=== PATIENT | female | born 1965 | race Caucasian/White ===

== ENCOUNTER 2017-10-31 03:40 | Emergency (ER) | payer OTHER ==
[2017-10-31] MEDS ORDERED: Ondansetron ODT 4 MG TAB ONE (03:55)
[2017-10-31 04:35] LABS: #Eosinphils 0.5 thou/uL (0.0-0.7); #Lymphocytes 2.4 thou/uL (1.20-3.40); #Monocytes 0.9 thou/uL (0.11-0.59); #Neutrophils 6.2 thou/uL (1.40-6.50); %Basophils 0.2 % (0.0-1.0); %Monocytes 8.7 % (0.0-10.0); %Neutrophils 62.1 % (42.0-75.0); Hemoglobin 11.9 g/dL (12.0-16.0); Mean Corpuscular HGB CONC 33.7 g/dL (32.0-36.0); Mean Corpuscular Hemoglobin 28.2 pg (27.0-31.0); Mean Corpuscular Volume 83.6 fl (81.0-99.0); Mean Platelet Volume 6.6 fL (7.4-10.4); Platelet Count 286 thou/uL (130-400); RBC Distribution Width 14.2 % (11.5-14.5); Red Blood Cell (RBC) Count 4.23 mill/uL (4.20-5.40); White Blood Cell (WBC) Count 10.1 thou/uL (4.8-10.8)
[2017-10-31 04:37] LABS: Bilirubin Negative (Negative); Blood, Urine Moderate (Negative); Clarity CLOUDY (Clear); Glucose, Urine (Dipstick) Negative (Negative); Leukocyte Negative (Negative); Nitrite Negative (Negative); Protein, Urine (Dipstick) 30 mg/dL (Neg-Trace); Specific Gravity, Urine 1.021 (1.002-1.036); Urobilinogen 0.2 mg/dL (0.2-1.0); pH, Urine 5.5 (5.0-9.0)
[2017-10-31 04:39] LABS: Bacteria/HPF Rare-Few HPF (None Seen); Hyaline Casts/LPF 4-6 HYALINE CAST LPF (0-3 Hyaline); RBC/HPF 21-50 HPF (0-3); Squamous Epithelial 21-50 HPF (0-3)
[2017-10-31 04:57] LABS: ALT (SGPT) 45 U/L (8-55); AST (SGOT) 33 U/L (5-34); Albumin 3.7 g/dL (3.5-5.0); Alkaline Phosphatase 89 U/L (40-150); Anion Gap 15 mmol/L (10-20); BUN (Urea Nitrogen) 26 mg/dL (9.8-20.1); Bilirubin, Total 0.3 mg/dL (0.2-1.2); Calc. Creatinine Clearance 0 mL/min (70-130); Calcium 9.4 mg/dL (7.8-10.44); Carbon Dioxide 24 mmol/L (22-29); Chloride 105 mmol/L (98-107); Estimated GFR-MDRD 35; Globulin 3.3 g/dL (2.4-3.5); Glucose 133 mg/dL (70-105); Sodium 140 mmol/L (136-145)
[2017-10-31] MEDS ORDERED: HYDROcodone/Acetaminophen 10/325 mg Tablet ONE (05:54)
[2017-10-31] MEDS ORDERED: Ketorolac Tromethamine 60 MG/2 ML VIAL ONE (06:06)
--- NOTE | 2017-10-31 08:58 | CT ---
PRELIMINARY REPORT/[facility]/EMERGENTY AFTER-HOURS PROCEDURE CT Abdomen and Pelvis Without Intravenous Contrast CLINICAL HISTORY: 52 years old, female; Pain; Abdominal pain; Flank; Left; Patient HX: F52 presents to ed C/O l flank p ain that began acutely this am while pt was asleep. Palpation does not exacerbate pain, pt denies cou gh, vomiting, abd pain. Pt reports nausea. Pt denies HX of kidney stones. Pt underwent chemo 2 weeks ago and went to [facility] where pt was told that l kidney only had 40-50% function left. Pt reports normal urination (no dysuria, no frequency, no hematuria). 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 Pt is no longer taking tx for cervical ca TECHNIQUE: Axial computed tomography images of the abdomen and pelvis without intravenous contrast. Coronal refo rmatted images were created and reviewed. COMPARISON: No relevant prior studies available. FINDINGS: Lung bases: Unremarkable. No mass. No consolidation. ABDOMEN: Liver: Hepatic steatosis. Gallbladder and bile ducts: Status post cholecystectomy. Pancreas: No ductal dilation. Spleen: Unremarkable. Adrenals: Unremarkable. Kidneys and ureters: Asymmetric enlargement of the left kidney with perinephric stranding and a 5 mm obstructing stone in the left ureteropelvic junction with mild hydronephrosis. A 2 mm nonobstructing stone in the left kidney. A 4 mm nonobstructing stone in the left kidney. Stomach and bowel: Diverticulosis of the colon without inflammatory changes. Appendix: No findings to suggest acute appendicitis. PELVIS: Bladder: Unremarkable. Reproductive: Status post hysterectomy. ABDOMEN and PELVIS: Intraperitoneal space: No free air. No significant fluid collection. Bones/joints: Multilevel degenerative changes of the spine. No acute fracture. No dislocation. Soft tissues: Unremarkable. Vasculature: Unremarkable. No abdominal aortic aneurysm. Lymph nodes: Large periportal lymph nodes. IMPRESSION: 1. Asymmetric enlargement of the left kidney with perinephric stranding and mild hydronephrosis due t o a 5 mm obstructing stone in the left ureteropelvic junction. 2. A 4 mm left and 2 mm right nonobstructing stones in both kidneys. 3. Large periportal lymph nodes. Consider rheumatologic consult. Thank you for allowing us to participate in the care of your patient. Dictated and Authenticated by: Hua Aldridge MD 10/31/2017 5:35 AM Central Time ([place] & [place]) FINAL REPORT CT ABDOMEN: HISTORY: Abdominal pain. Left-sided flank pain. FINDINGS: Final report. Preliminary exam was performed by [facility]. Noncontrast-enhanced CT images of the abdomen and pelvis were obtained. There is an approximately 5 mm proximal left ureteral calculus resulting in a moderate degree of left-sided hydroureteral nephros is. Some perinephric fat stranding is present. No evidence of free intraperitoneal air or fluid is seen. Enlarged periportal lymph nodes seen. IMPRESSION: Obstructing proximal left ureteral calculus. I concur with the dictation from [facility]. POS: [facility]
== END 2017-10-31 06:13 | disposition home or self-care (01) ==
LOC: ERS 03:40
DX: N13.2 Hydronephrosis with renal and ureteral calculous obstruction (principal); E66.9 Obesity, unspecified; I10 Essential (primary) hypertension
CPT/HCPCS: 36415; 74176; 80053; 81003; 81015; 85025; 87086; 96372; J1885; Q0162

== ENCOUNTER 2017-11-04 15:50 | Inpatient (IN) | payer OTHER ==
[~2017-11-04 15:50] MED LIST: Dexamethasone 20 MG/5 ML VIAL ONE; Lidocaine 1% PF 5 ML VIAL ONE; Ondansetron HCl/PF 4 MG/2 ML Vial ONE; PROPOFOL 200 MG/20 ML VIAL ONE; Succinylcholine Chloride 20 MG/ML 10 ml SYRINGE FS ONE; ePHEDrine/0.9% NaCl/PF SYRINGE 50 mg/10 ml ONE
[2017-11-04 19:10] LABS: #Eosinphils 0.3 thou/uL (0.0-0.7); #Lymphocytes 1.7 thou/uL (1.20-3.40); #Monocytes 1.1 thou/uL (0.11-0.59); #Neutrophils 7.6 thou/uL (1.40-6.50); %Basophils 0.3 % (0.0-1.0); %Eosinophils 2.5 % (0.0-10.0); %Lymphocytes 16.2 % (21.0-51.0); %Monocytes 10.3 % (0.0-10.0); %Neutrophils 70.8 % (42.0-75.0); Hemoglobin 11.4 g/dL (12.0-16.0); Mean Corpuscular HGB CONC 32.8 g/dL (32.0-36.0); Mean Corpuscular Hemoglobin 28.2 pg (27.0-31.0); Mean Corpuscular Volume 85.9 fl (81.0-99.0); Mean Platelet Volume 6.5 fL (7.4-10.4); Platelet Count 298 thou/uL (130-400); RBC Distribution Width 14.1 % (11.5-14.5); Red Blood Cell (RBC) Count 4.03 mill/uL (4.20-5.40); White Blood Cell (WBC) Count 10.8 thou/uL (4.8-10.8)
[2017-11-04 19:34] LABS: ALT (SGPT) 92 U/L (8-55); AST (SGOT) 46 U/L (5-34); Albumin 3.6 g/dL (3.5-5.0); Alkaline Phosphatase 161 U/L (40-150); Anion Gap 12 mmol/L (10-20); BUN (Urea Nitrogen) 39 mg/dL (9.8-20.1); Bilirubin, Total 0.5 mg/dL (0.2-1.2); Calc. Creatinine Clearance 0 mL/min (70-130); Calcium 9.9 mg/dL (7.8-10.44); Carbon Dioxide 28 mmol/L (22-29); Chloride 103 mmol/L (98-107); Estimated GFR-MDRD 20; Globulin 3.9 g/dL (2.4-3.5); Glucose 108 mg/dL (70-105); Potassium 4.6 mmol/L (3.5-5.1); Protein, Total 7.5 g/dL (6.0-8.3); Sodium 138 mmol/L (136-145)
[2017-11-04 19:52] LABS: Bilirubin Negative (Negative); Blood, Urine Negative (Negative); Clarity CLOUDY (Clear); Glucose, Urine (Dipstick) Negative (Negative); Leukocyte Negative (Negative); Nitrite Negative (Negative); Protein, Urine (Dipstick) 30 mg/dL (Neg-Trace); Specific Gravity, Urine 1.021 (1.002-1.036); pH, Urine 5.5 (5.0-9.0)
[2017-11-04 19:55] LABS: Bacteria/HPF None Seen HPF (None Seen); Hyaline Casts/LPF 0-3 HYALINE CAST LPF (0-3 Hyaline); Pathc Cast-AUWi Flag 0.87 (0-2.49)
[2017-11-04 20:00] LABS: Yeast-AUWi Flag 25.4 (0-25.0)
[2017-11-04 20:19] LABS: Crystals/HPF 1+ URIC ACID HPF (Negative); Yeast-All Forms None Seen HPF (None Seen)
[2017-11-04] MEDS ORDERED: Bisacodyl 5 MG TAB PO PRN (20:35)
[2017-11-04] MEDS ORDERED: Acetaminophen 650 MG Suppository PR PRN (20:35)
[2017-11-04] MEDS ORDERED: Ondansetron HCl/PF 4 MG/2 ML Vial IVP PRN ×2 (20:35→23:05)
[2017-11-04] MEDS ORDERED: Acetaminophen 325 MG TAB PO PRN (20:35)
[2017-11-04] MEDS ORDERED: HYDROcodone/Acetaminophen 5/325 mg Tablet PO PRN (20:35)
[2017-11-04] MEDS ORDERED: Dextrose 5% in Water 1,000 ML IV PRN (20:49)
[2017-11-04] MEDS ORDERED: Dextrose 50% Abboject 50 ML SYRINGE SLOW IVP PRN (20:49)
--- NOTE | 2017-11-04 21:03 | ULT ---
RENAL ULTRASOUND: 11/04/17 INDICATION: Abdominal pain. History of renal stones. COMPARISON: Prior CT dated 10/31/17. FINDINGS: Right kidney measures 9.0 x 5.1 x 5.2 cm. Left kidney measures 11.8 x 6.3 x 5.8 cm. Small echogenic f ocus is seen within the inferior pole of left kidney likely corresponding to small nonobstructing beth al calculi. Mild left hydronephrosis is present. No right sided hydronephrosis is evident. The prevoi d bladder volume was 5.6 mL. IMPRESSION: 1. Left nephrolithiasis. 2. Stable mild left sided hydronephrosis demonstrated. POS: [facility]
[2017-11-04] MEDS ORDERED: Iothalamate Meglumine 60% 50 ML VIAL FS ONE (21:31)
[2017-11-04] MEDS ORDERED: HYDROmorphone 0.5 MG/0.5 ML SYRINGE ONE (21:31)
[2017-11-04] MEDS ORDERED: Fentanyl 100 MCG/2 ML VIAL ONE (21:31)
--- NOTE | 2017-11-04 21:45 | HP ---
PRIMARY CARE PHYSICIAN: Dr. Claudio Hernandez. CHIEF COMPLAINT: Left flank pain. HISTORY OF PRESENT ILLNESS: Ms. Peraza is a pleasant 52-year-old lady who was seen at [facility] on 11/04/2017. She reports that she developed left-sided flank pain, 4 days ago . She reports that it is sharp, 10/10 at its worst, constant, no known aggravating or relieving fact ors. She came to the emergency room and was diagnosed with left-sided nephrolithiasis. She was disc harged home. Yesterday, she had a temperature of 100.4 degrees Fahrenheit. She saw her primary care physician earlier today. Urine test was suggestive of an infection. She was therefore sent to the emergency room after I discussed with the urologist on-call. She also reports nausea. She denies any chest pain or shortness of breath. She denies any vomiting. REVIEW OF SYSTEMS: The following complete review of systems was negative, unless otherwise mentioned in the HPI or below: Constitutional: Weight loss or gain, ability to conduct usual activities. Sk in: Rash, itching. Eyes: Double vision, pain. ENT/Mouth: Nose bleeding, neck stiffness, pain, te nderness. Cardiovascular: Palpitations, dyspnea on exertion, orthopnea. Respiratory: Shortness of breath, wheezing, cough, hemoptysis, fever, or night sweats. Gastrointestinal: Poor appetite, abdo marcial pain, heartburn, nausea, vomiting, constipation, or diarrhea. Genitourinary: Urgency, frequen cy, dysuria, nocturia. Musculoskeletal: Pain, swelling. Neurologic/Psychiatric: Anxiety, depressi on. Allergy/Immunologic: Skin rash, bleeding tendency. 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 SOCIAL HISTORY: Patient denies tobacco use, alcohol use, or recreational drug use. FAMILY HISTORY: Sister with nephrolithiasis. ALLERGIES: ASPIRIN AND PREDNISONE. CURRENT MEDICATIONS: [place] 10/325 mg every 4 hours as needed and metformin 500 mg 2 times a day. PHYSICAL EXAMINATION: GENERAL: Ms. Peraza is awake and alert, not in acute distress. VITAL SIGNS: Blood pressure is 163/70, pulse is 97. She is breathing at rate of 20 and saturating 9 4% on room air. She is afebrile. She is obese. EYES: No scleral icterus, no conjunctival pallor. ENT: Dry mucosal membranes, no oropharyngeal erythema or exudates. NECK: Supple, nontender, normal range of movement, trachea is midline. RESPIRATORY: Accessory muscles of breathing are not active. Chest wall movements are symmetric bila terally. LUNGS: Clear to auscultation without wheeze, rhonchi, or crepitations. CARDIOVASCULAR: S1 and S2 are heard, regular. Peripheral pulses palpable, no carotid bruit, no krys cardial rub. ABDOMEN: Soft, distended, nontender, bowel sounds heard, no hepatomegaly, no splenomegaly, no flank tenderness. NEUROLOGIC: Cranial nerves II-XII intact. Deep tendon reflexes 2+. MUSCULOSKELETAL: Power is 5/5 in all 4 extremities. Normal range of movement at all major extremity joints. SKIN: No rashes or subcutaneous nodules. LYMPHATIC: No cervical lymphadenopathy. PSYCHIATRIC: Normal mood, normal affect, patient is oriented to person, place, and time. LABORATORY DATA: Ms. Peraza's labs and investigations were reviewed. She had a renal ultrasound, w [facility] showed left-sided nephrolithiasis, but no hydronephrosis. She has a normal white count, normocy tic anemia with hemoglobin 11.4, normal platelet count, normal electrolytes, elevated blood-urea nitr ogen of 39, elevated creatinine of 2.48, last known creatinine 1.55 on 10/31/2017, elevated AST of 46 , elevated ALT of 92, elevated alkaline phosphatase is 161. Four days ago, these three parameters we re normal, normal total bilirubin and urinalysis that is positive for protein, trace ketones, and 4-6 wbcs per high power field. ASSESSMENT AND PLAN: Ms. Peraza is a pleasant 52-year-old lady who was seen at [facility] on 11/04/2017. Her problem list includes: 1. Acute on chronic renal failure: Ms. Peraza is presenting with acute on chronic renal failure. She does have evidence of dehydration. She will be admitted to the hospital and treated with gentle IV hydration and her creatinine will be rechecked. Urology Service has also been consulted by emerge ncy room physician and has ordered a noncontrast CT scan of the abdomen and pelvis to rule out the ne phrolithiasis. Nephrology Service has also been consulted and advises hydration. 2. Fevers: Patient is currently afebrile. Urinalysis is unremarkable. We will check chest x-ray t o rule out any pulmonary infection. She does have a normal white count. If she spikes fever again, she can be started on intravenous antibiotics. 3. Abnormal liver function test: Etiology unclear, we will recheck. If not trending down, may need abdominal ultrasound. 4. Hypertension: Monitor vital signs, titrate antihypertensives as needed. 5. Diabetes mellitus. Patient is on metformin. Hold metformin given renal insufficiency. Many thanks for allowing me to participate in your patient's care. Please feel free to contact me wi th any questions or concerns. LEVEL OF RISK: Moderate. LEVEL OF COMPLEXITY: Moderate.
--- NOTE | 2017-11-04 21:51 | CT ---
CT OF THE ABDOMEN AND PELVIS WITHOUT IV CONTRAST: 11/04/17 INDICATION: Followup left renal stone. FINDINGS: The 4 mm calculus within the left ureter has migrated distally to the level of the mid ureter or the L3 vertebral level. 4 mm calculus within inferior pole left kidney is stable. Mild left hydronephrosi s remains. Tiny 1 to 2 mm calculus is seen within the superior pole right kidney and right mid kidney . There is a mild amount of retained stool within the colon. There is fatty infiltration of the liver. The gallbladder is surgically absent. Unopacified pancreas and adrenal glands are within normal limit s. No definite acute osseous abnormality is evident. IMPRESSION: 1. Slight interval migration of the left ureteral calculus down to approximately the L3 vertebra l level with persistent mild left hydronephrosis. 2. Stable bilateral nephrolithiasis. POS: [facility]
--- NOTE | 2017-11-04 21:57 | RAD ---
AP VIEW OF THE CHEST: 11/04/17 INDICATION: History of kidney stones; preop exam. FINDINGS: Mild cardiomegaly is stable. Right chest wall port is unchanged from comparison dated 08/17/15. Scatte red degenerative change is present. No acute osseous abnormality is evident. IMPRESSION: Stable cardiomegaly. POS: [facility]
[2017-11-04] MEDS ORDERED: Ondansetron HCl/PF 4 MG/2 ML Vial ONE (22:31)
--- NOTE | 2017-11-04 23:01 | RAD ---
RETROGRADE IVP: 11/04/17 HISTORY: 52-year-old female with left ureteral calculus for stent placement. The previously noted left ureteral calculus seen on prior CT is not definitively identified on the sc out view. There is a filling defect at approximately the L3-L4 level which appears to correspond to t he ureteral calculus. Stent is placed with decompression of the left upper collecting system. IMPRESSION: Left ureteral calculus. Stent placement in satisfactory location. POS: [facility]
[2017-11-04] MEDS ORDERED: Promethazine HCl 25 MG/ML VIAL SLOW IVP PRN (23:05)
[2017-11-04] MEDS ORDERED: HYDROmorphone 2 MG/ML VIAL SLOW IVP PRN (23:05)
[2017-11-04] MEDS ORDERED: Promethazine HCl 25 MG/ML VIAL IM PRN (23:05)
[2017-11-04 23:22] LABS: Bilirubin Negative (Negative); Blood, Urine Large (Negative); Clarity CLOUDY (Clear); Glucose, Urine (Dipstick) Negative (Negative); Leukocyte Large (Negative); Nitrite Negative (Negative); Protein, Urine (Dipstick) Negative (Neg-Trace); Urobilinogen 0.2 mg/dL (0.2-1.0)
[2017-11-04 23:26] LABS: Pathc Cast-AUWi Flag 3.05 (0-2.49); Yeast-AUWi Flag 73.1 (0-25.0)
[2017-11-04 23:39] LABS: Transitional Epithelial 0-3 HPF (0-3)
[2017-11-04 23:40] LABS: Bacteria/HPF Rare-Few HPF (None Seen); Squamous Epithelial 0-3 HPF (0-3)
[2017-11-04 23:41] LABS: Hyaline Casts/LPF 0-3 HYALINE CAST LPF (0-3 Hyaline); Manual Microscopic Reviewed? No Path Casts Seen; Yeast-All Forms None Seen HPF (None Seen)
[2017-11-04 23:53] VITALS: BMI 50.7
--- NOTE | 2017-11-05 00:59 | OP ---
DATE OF SERVICE: 11/04/2017 PREOPERATIVE DIAGNOSES: Left ureteral stone with hydronephrosis and rising creatinine. POSTOPERATIVE DIAGNOSES: Left ureteral stone with hydronephrosis and rising creatinine. PROCEDURE: Cystoscopy, left retrograde pyelogram, insertion of left ureteral stent, 6 x 24 double J. SURGEON: Kavya Huddleston M.D. ANESTHESIA: General with ET tube. FINDINGS: Adequate placement of the stent with debris filled urine noted upon return. No complicati ons, no blood loss. DRAINS REMAINING: A 6 x 24 double J. SPECIMEN: Urine from the left renal pelvis. INDICATIONS: The patient is a 52-year-old morbidly obese female who was seen in the ER with obstruct ing stone on , seen in her PCP's office earlier in the day, not doing well and returned to the ER to find that the stones had not increased; however, the stone had not moved any; however, her creati nine had risen so she was admitted for urgent stent. PROCEDURE IN DETAIL: The patient was brought to the room by Anesthesia, laid in the table in supine position. After receiving a general anesthetic, her legs placed in lithotomy position and her perine um was prepped and draped in sterile fashion. Using a 22 [place] cystoscope and 30 degree lens, the u rethra was traversed and bladder inspected. No lesions were noted. Ureteral orifices were identifie d in normal position. The left was intubated with a Pollack catheter and retrograde pyelogram was pe rformed revealing mild hydronephrosis. Pollack catheter was then advanced and there was noted to be some resistance in the distal ureter that could have been the stone actually has migrated since the m ost recent CT, but there was no obvious filling defect in the proximal ureter. Once the stent went i nto the renal pelvis, approximately 15 mL of cloudy dark urine was extracted and sent for specimen, t hen measurements were taken and a 6 x 24 double-J was placed with good coil visualized in the upper p ole, so was pulled out with a grasper and then ultimately good coil visualized in the renal pelvis vi a fluoroscopy and a good coil visualized in the bladder via cystoscopy. Brown debris filled and this was noted, free flowing. The bladder was drained, scope removed in its entirety and then the patien t was awakened and transferred to the PACU in stable condition.
[2017-11-05] MEDS: HumaLOG 300 UNITS/3 ML VIAL SC PRN ×3 (05:21→22:18)
[2017-11-05 05:51] LABS: #Eosinphils 0.1 thou/uL (0.0-0.7); #Monocytes 0.4 thou/uL (0.11-0.59); #Neutrophils 8.2 thou/uL (1.40-6.50); %Basophils 0.1 % (0.0-1.0); %Eosinophils 0.6 % (0.0-10.0); %Lymphocytes 9.9 % (21.0-51.0); %Neutrophils 85.4 % (42.0-75.0); Hemoglobin 11.1 g/dL (12.0-16.0); Mean Corpuscular HGB CONC 32.4 g/dL (32.0-36.0); Mean Corpuscular Hemoglobin 27.8 pg (27.0-31.0); Mean Corpuscular Volume 85.8 fl (81.0-99.0); Mean Platelet Volume 6.4 fL (7.4-10.4); Platelet Count 288 thou/uL (130-400); Red Blood Cell (RBC) Count 4.01 mill/uL (4.20-5.40); White Blood Cell (WBC) Count 9.6 thou/uL (4.8-10.8)
[2017-11-05 06:00] LABS: Anion Gap 10 mmol/L (10-20); BUN (Urea Nitrogen) 39 mg/dL (9.8-20.1); Calc. Creatinine Clearance 61 mL/min (70-130); Calcium 9.7 mg/dL (7.8-10.44); Carbon Dioxide 28 mmol/L (22-29); Chloride 105 mmol/L (98-107); Estimated GFR-MDRD 23; Glucose 201 mg/dL (70-105); Sodium 138 mmol/L (136-145)
--- NOTE | 2017-11-05 10:23 | RAD ---
ABDOMEN 1 VIEW: HISTORY: A 52-year-old female with a history of renal calculus. FINDINGS: There is a left ureteral stent. I cannot definitely identify an opaque calculus. IMPRESSION: Left ureteral stent in place. No definitive calculus is seen. POS: [facility]
--- NOTE | 2017-11-05 11:45 | HP-2 ---
DATE OF ADMISSION: 11/04/2017 Jules Dumont M.D. dictating for Odilia Krishna M.D. CHIEF COMPLAINT: Left flank pain. HISTORY OF PRESENT ILLNESS: Ms. Peraza is a 52-year-old lady, who I saw at [place] [facility] 4 days ago on Thursday. She reported that she was having left flank pain. It was a sharp, 10/10 pain at worst, constant with no known aggravating or relieving factors. She was seen at the ED where she was diagnosed with a left-sided nephrolithiasis and was discharged home for conservative management; however, when she went to her PCP, she was found to have a fever of 100.4F. She was sent to the ER where Urology was consulted. A stent was placed after a cystoscopy and left retrograde pyelogram. The stent was placed successfully and then the patient was brought back to the medical floor. PAST MEDICAL HISTORY: 1. Hypertension. 2. Cervical cancer, status post hysterectomy. 3. Status post radiation and chemotherapy, currently cancer free for 2 years. 4. Cisplatin-induced nephrotoxicity. 5. Diabetes mellitus, type 2. PAST SURGICAL HISTORY: 1. Hysterectomy. 2. MediPort placement in the right upper chest. 3. Cholecystectomy. 4. LEEP procedure. SOCIAL HISTORY: The patient denies tobacco use, alcohol use, or drug use. FAMILY HISTORY: Family history of nephrolithiasis in sister. ALLERGIES: 1. ASPIRIN. 2. PREDNISONE. CURRENT MEDICATIONS: 1. [place] 10/325 every 4 hours as needed. 2. Metformin 500 mg b.i.d. REVIEW OF SYSTEMS: Constitutional: Denies current fever or chills. Skin: Denies rash or itching. Eyes: Denies vision changes. HEENT: Denies nasal congestion or cough. Cardiovascular: Denies chest pain or palpitations. Respirations: Denies shortness of breath, wheezing, coughing. Gastrointestinal: Endorses improving appetite. Denies abdominal pain, diarrhea , or constipation. Genitourinary: Endorses mild dysuria. Denies hematuria, urgency. MSK: Denies any muscle pain or joint pain. PHYSICAL EXAMINATION: VITAL SIGNS: Temperature 98.1, pulse 74, respirations 20, O2 sat 97% on room air, blood pressure 154/74. GENERAL: Awake, alert, not in acute distress. HEENT: No scleral icterus. Moist mucosal membrane. NECK: Supple. Trachea midline. RESPIRATORY: Clear to auscultation bilaterally. CARDIOVASCULAR: Regular rate and rhythm. No apparent murmur, gallops, or rub. ABDOMEN: Soft, distended abdomen, secondary to body habitus. Normal active bowel sounds. SKIN: No noted rashes. MUSCULOSKELETAL: The patient ambulating easily from bed to the restroom. LABORATORY DATA: 1. WBC 9.6, hemoglobin 11.1, hematocrit 34.4, platelets 288. 2. Sodium 138, potassium 5, chloride 105, bicarbonate 28, BUN 39, creatinine 2.24, GFR 23, glucose 201, calcium 9.7. 3. Total bilirubin 0.5, AST 46, ALT 92, alkaline phosphatase 161. 4. UA, large blood, large leukocyte esterase, 7-10 rbc and 7-10 wbc. 5. Urine culture done on 11/04/2017, results mixed skin alex. IMAGIN. Abdomen and pelvis CT, impression or findings, a 4 mm calculus within the left ureter migrating distally to the level of mid ureter at the L3 vertebral level and 4 mm calculus within the inferior pole of the left kidney is stable. Mild left hydronephrosis remains. Tiny 1-2 mm calculus seen within the superior pole of the right kidney and right mid kidney. 2. Retrograde pyelogram, previously noted left ureteral calculus seen, it does not definitively identify. There is a filling deficit at the L3-L4 level, which would correspond to the calculus. Stent placed with decompression of the left upper collecting system. 3. Renal ultrasound findings, right kidney measured 9 x 5 x 5.2 and left kidney measured 11.8 x 6 with 3 x 5.8. Small echogenic foci seen within the inferior pole of left kidney, likely corresponding left too small nonobstructive renal calculi, mild left hydronephrosis noted, pre-void bladder volume was 5.6 mL. 4. Chest x-ray, mild cardiomegaly, stable. Right chest wall port is unchanged from comparison on 08/17/2015. Scattered degenerative change present. No acute abnormalities noted. 5. Abdominal x-ray, there is a left ureteral stent, cannot identify an opaque calculus. ASSESSMENT AND PLAN: 1. Acute on chronic kidney failure. The patient recently has history of dehydration and now has kidney stones. Recommend that the patient to be started on IV hydration, as it is also expected that she will have increased diuresis. Due to postobstructive diuresis, recommend approximately 75 mL of half normal saline an hour. 2. History of fever. Currently, the patient is afebrile and UA and urine culture on previous visit did not indicate an infection, and her WBC is normal at this time. At this time, does not appear that she is having a urinary tract infection as her symptom has mostly resolved with placing of the ureteral stent. 3. Nephrolithiasis. We will await studies on the obtained stones and we will make further recommendations, though at the meantime, encouraged the patient to continue hydration for prevention of further stones. 4. Diabetes mellitus. Due to recent kidney injury, metformin should be held. MTDD
--- NOTE | 2017-11-05 13:45 | PDOC.PN ---
- Subjective Encounter Start Date: 11/05/17 Encounter Start Time: 10:00 Pt seen for followup re; acute on chronic renal failure. Denies chest pain, shortness of breath, fevers or chills. - Objective MAR Reviewed: Yes Vital Signs & Weight: Vital Signs (12 hours) Temp Pulse Resp BP Pulse Ox 11/05/17 13:02 98.4 F 81 20 145/68 H 96 11/05/17 08:00 98.1 F 74 20 156/74 H 97 Weight Admit Weight 295 lb 7 oz Weight 295 lb 7 oz I&O: 11/04/17 11/05/17 11/06/17 06:59 06:59 06:59 Intake Total 480 240 Output Total 350 500 Balance 130 -260 Result Diagrams: 11/05/17 05:19 11/05/17 05:19 Additional Labs: Accuchecks 11/05/17 11/05/17 11/05/17 11:39 04:33 00:46 POC Glucose 166 H 199 H 138 H Phys Exam - Physical Examination Morbid obesity HEENT: PERRLA, moist MMs, sclera anicteric, oral pharynx no lesions Neck: no nodes, no JVD, supple, full ROM Respiratory: no wheezing, no rales, no rhonchi, clear to auscultation bilateral Cardiovascular: RRR, no rub Gastrointestinal: soft, non-tender, positive bowel sounds distention Neurological: moves all 4 limbs Psychiatric: normal affect Skin: no rash Dx/Plan (1) Acute on chronic renal failure Code(s): N17.9 - ACUTE KIDNEY FAILURE, UNSPECIFIED; N18.9 - CHRONIC KIDNEY DISEASE, UNSPECIFIED Status: Acute Comment: Mild improvement, continue IV fluids. nephrology following. (2) Hydronephrosis Code(s): N13.30 - UNSPECIFIED HYDRONEPHROSIS Status: Acute Comment: s/p L ureteric stent placement. Urology following. (3) Abnormal LFTs Code(s): R94.5 - ABNORMAL RESULTS OF LIVER FUNCTION STUDIES Status: Acute Comment: Recheck LFTs. (4) HTN (hypertension) Code(s): I10 - ESSENTIAL (PRIMARY) HYPERTENSION Status: Chronic Comment: Monitor vital signs, titrate antihypertensives as needed. (5) DM2 (diabetes mellitus, type 2) Status: Chronic Comment: Continue accuchecks, insulin sliding scale. - Plan * . Review of Systems - Review of Systems Constitutional: negative: fever, chills, sweats, weakness, malaise Respiratory: negative: Cough, Shortness of Breath, SOB with Excertion, Pleuritic Pain, Wheezing Cardiovascular: negative: chest pain, palpitations, orthopnea, paroxysmal nocturnal dyspnea, edema, light headedness Gastrointestinal: negative: Nausea, Vomiting, Abdominal Pain, Diarrhea, Constipation, Melena, Hematochezia Genitourinary: negative: Dysuria, Frequency, Incontinence, Hematuria, Retention Skin: negative: Rash, Lesions, Emile, Bruising - Medications/Allergies Allergies/Adverse Reactions: Allergies Allergy/AdvReac Type Severity Reaction Status Date / Time aspirin Allergy Intermediate VOMITING Verified 04/10/16 10:43 prednisone Allergy Intermediate STOMACH Verified 04/10/16 10:43 CRAMPING Medications: Current Medications Acetaminophen (Tylenol) 650 mg PO Q4H PRN PRN Reason: Headache/Fever or Pain Acetaminophen (Tylenol) 650 mg [place] Q4H PRN PRN Reason: Headache/Fever or Pain Hydrocodone Bitart/Acetaminophen ([place] 5/325) 1 tab PO Q4H PRN PRN Reason: Moderate Pain (4-6) Hydrocodone Bitart/Acetaminophen ([place] 5/325) 2 tab PO Q4H PRN PRN Reason: Severe Pain (7-10) Bisacodyl (Dulcolax) 10 mg PO DAILYPRN PRN PRN Reason: Constipation Dextrose/Water (Dextrose 50%) 25 gm SLOW IVP PRN PRN PRN Reason: Hypoglycemia Glucagon (Glucagon) 1 mg IM PRN PRN PRN Reason: Hypoglycemia Dextrose/Water (D5w) 1,000 mls @ 0 mls/hr IV .Q0M PRN; As Directed PRN Reason: Hypoglycemia Insulin Human Lispro (Humalog) 0 units SC .MILD SLIDING SCALE PRN PRN Reason: Mild Correctional Scale Last Admin: 11/05/17 05:21 Dose: 2 unit Ondansetron HCl (Zofran) 4 mg IVP Q6H PRN PRN Reason: Nausea/Vomiting Sodium Chloride (Flush - Normal Saline) 10 ml IVF PRN PRN PRN Reason: Saline Flush
[2017-11-05 15:10] LABS: ALT (SGPT) 69 U/L (8-55); AST (SGOT) 27 U/L (5-34); Albumin 3.6 g/dL (3.5-5.0); Alkaline Phosphatase 151 U/L (40-150); Bilirubin, Direct 0.2 mg/dL (0.1-0.3); Bilirubin, Total 0.4 mg/dL (0.2-1.2); Protein, Total 7.5 g/dL (6.0-8.3)
--- NOTE | 2017-11-05 19:50 | PRG ---
DATE OF SERVICE: 11/05/2017 SUBJECTIVE: The patient has done well since her stent was placed. She reports significant improvement from yesterday with no pain; however, just recently when she had to hold her urine for a short time, and she did have some loss of urine on the way to the toilet. But she has otherwise remained continent. OBJECTIVE: She had tachycardia originally and now that has improved. She remained slightly hypertensive, but has had good urine output overnight, voiding on her own. LABORATORY/IMAGING DATA: Laboratory values reveal stable CBC and improved creatinine at 2.24 from 2.48 and urine from the OR showed rare bacteria. I did review with her that a repeat plain KUB did not show where the stone is and ultimately we may need to get another CAT scan based on her body habitus to determine whether the stone is in the ureter versus in the kidney as it that would change my management. We will handle this as an outpatient. ASSESSMENT AND PLAN: We have a 52-year-old female with renal insufficiency that worsened with acute obstruction on the left from a stone, status post stent with expected improvement. Her other medical issues will be addressed by her admitting physician and they will determine when she is appropriate to be discharged. I left her with prescriptions; however, if she gets 3 days of antibiotics while in house then she does not need the antibiotic upon discharge. I will arrange followup for her in the office. CARLOS
--- NOTE | 2017-11-05 23:56 | CON ---
DATE OF CONSULTATION: 11/05/2017 REASON FOR CONSULTATION: Acute kidney injury. REASON FOR ADMISSION: Abdominal pain. CONSULTING PHYSICIAN: Dr. Madrigal. Please note that please review the detailed consult note done by Dr. CURIEL the resident working with me. ASSESSMENT AND PLAN: 1. Acute kidney injury on chronic kidney disease stage 3 with baseline creatinine of 1.2-1.5. The p atient admitted with nephrolithiasis and status post urological interventions as then feeling better. 2. Acute kidney injury most likely from obstruction, currently feeling better. We will watch for po stobstructive diuresis. We will recommend IV fluids as tolerated. 3. Mild hyperkalemia, limit potassium in the diet. 4. Edema, controlled. 5. Mild hypoalbuminemia. 6. Hypertension, stable. 7. Anemia. 8. Morbid obesity. Plan is to continue to monitor renal function, avoid nephrotoxins and we will follow.
[2017-11-06] MEDS: HYDROcodone/Acetaminophen 5/325 mg Tablet PO PRN ×3 (00:14→20:15)
--- NOTE | 2017-11-06 14:21 | PDOC.PN ---
- Subjective Encounter Start Date: 11/06/17 Encounter Start Time: 12:30 Subjective: no sob. Is straining urine, has had some sediments seen -: no abd pain or nausea - Objective MAR Reviewed: Yes Vital Signs & Weight: Vital Signs (12 hours) Temp Pulse Resp BP Pulse Ox 11/06/17 08:00 97.6 F 69 16 11/06/17 07:25 97.6 F 69 16 142/84 H 99 Weight Admit Weight 295 lb 7 oz Weight 295 lb 7 oz I&O: 11/05/17 11/06/17 11/07/17 06:59 06:59 06:59 Intake Total 480 1080 Output Total 350 900 Balance 130 180 Result Diagrams: 11/05/17 05:19 11/05/17 05:19 Additional Labs: Accuchecks 11/06/17 11/06/17 11/05/17 11:11 05:38 20:44 POC Glucose 145 H 141 H 193 H 11/05/17 17:34 POC Glucose 162 H Phys Exam - Physical Examination HEENT: PERRLA, moist MMs Neck: no JVD, supple Respiratory: no wheezing, no rales Cardiovascular: RRR, no significant murmur Gastrointestinal: soft, non-tender, positive bowel sounds Musculoskeletal: no edema, pulses present Neurological: non-focal, moves all 4 limbs Psychiatric: normal affect, A&O x 3 Dx/Plan (1) Acute on chronic renal failure Code(s): N17.9 - ACUTE KIDNEY FAILURE, UNSPECIFIED; N18.9 - CHRONIC KIDNEY DISEASE, UNSPECIFIED Status: Acute Comment: Mild improvement, continue IV fluids. nephrology following. (2) Hydronephrosis Code(s): N13.30 - UNSPECIFIED HYDRONEPHROSIS Status: Acute Comment: s/p L ureteric stent placement. Urology outpt f/u (3) DM2 (diabetes mellitus, type 2) Status: Chronic Qualifiers: Diabetes mellitus long-term insulin use: without long-term use Diabetes mellitus complication status: with unspecified complications Qualified Code(s) : E11.8 - Type 2 diabetes mellitus with unspecified complications Comment: Continue accuchecks, insulin sliding scale. (4) HTN (hypertension) Code(s): I10 - ESSENTIAL (PRIMARY) HYPERTENSION Status: Chronic Qualifiers: Hypertension type: essential hypertension Qualified Code(s): I10 - Essential (primary) hypertension Comment: Monitor vital signs, titrate antihypertensives as needed. (5) Anemia Code(s): D64.9 - ANEMIA, UNSPECIFIED Status: Chronic Qualifiers: Anemia type: unspecified type Qualified Code(s): D64.9 - Anemia, unspecified (6) Morbid obesity with BMI of 50.0-59.9, adult Code(s): E66.01 - MORBID (SEVERE) OBESITY DUE TO EXCESS CALORIES; Z68.43 - BODY MASS INDEX (BMI) 50-59.9 , ADULT Status: Chronic - Plan is on 1/2 ns @50mls/hr -: labs now and in am -: d/w , wants her creatinine to get better prior to dc -: off antibiotics, cultures are -ve -: to amb as tolerated, d/w pt and * . Review of Systems - Medications/Allergies Allergies/Adverse Reactions: Allergies Allergy/AdvReac Type Severity Reaction Status Date / Time aspirin Allergy Intermediate VOMITING Verified 04/10/16 10:43 prednisone Allergy Intermediate STOMACH Verified 04/10/16 10:43 CRAMPING Medications: Current Medications Acetaminophen (Tylenol) 650 mg PO Q4H PRN PRN Reason: Headache/Fever or Pain Acetaminophen (Tylenol) 650 mg GA Q4H PRN PRN Reason: Headache/Fever or Pain Hydrocodone Bitart/Acetaminophen ([place] 5/325) 1 tab PO Q4H PRN PRN Reason: Moderate Pain (4-6) Hydrocodone Bitart/Acetaminophen ([place] 5/325) 2 tab PO Q4H PRN PRN Reason: Severe Pain (7-10) Last Admin: 11/06/17 10:21 Dose: 2 tab Bisacodyl (Dulcolax) 10 mg PO DAILYPRN PRN PRN Reason: Constipation Dextrose/Water (Dextrose 50%) 25 gm SLOW IVP PRN PRN PRN Reason: Hypoglycemia Glucagon (Glucagon) 1 mg IM PRN PRN PRN Reason: Hypoglycemia Dextrose/Water (D5w) 1,000 mls @ 0 mls/hr IV .Q0M PRN; As Directed PRN Reason: Hypoglycemia Sodium Chloride (1/2 Normal Saline) 1,000 mls @ 50 mls/hr IV .Q20H KATIE Insulin Human Lispro (Humalog) 0 units SC .MILD SLIDING SCALE PRN PRN Reason: Mild Correctional Scale Last Admin: 11/05/17 22:18 Dose: 2 unit Ondansetron HCl (Zofran) 4 mg IVP Q6H PRN PRN Reason: Nausea/Vomiting Sodium Chloride (Flush - Normal Saline) 10 ml IVF PRN PRN PRN Reason: Saline Flush
--- NOTE | 2017-11-06 14:40 | PRG ---
DATE OF SERVICE: 11/06/2017 SUBJECTIVE: Patient was seen and examined at bedside and overnight events noted. Patient denies any shortness of breath or chest pain or palpitation. No history of nausea or vomitin g or diarrhea or fever or chills or cramps. OBJECTIVE: GENERAL: This is an obese female, in no apparent distress. VITAL SIGNS: Temperature 97.0, pulse 69, respiratory rate 16, blood pressure 142/80. HEENT: Atraumatic, normocephalic. Oral mucosa is moist NECK: Supple. CARDIOVASCULAR: S1 and S2 heard. Rate and rhythm regular. RESPIRATORY: Clear to auscultation. GASTROINTESTINAL: Abdomen is soft. MUSCULOSKELETAL: No tenderness. No edema. DERMATOLOGIC: No skin rash. NEUROLOGIC: Alert and awake and oriented x3. No focal neurologic deficits. Moving all the extremit ies. PSYCHIATRIC: Mood and affect normal. LABORATORY DATA: Not done today. ASSESSMENT AND PLAN: 1. Acute kidney injury on chronic kidney disease. Renal function with improvement. Avoid nephrotox ins. We will recommend IV fluids as tolerated. 2. Mild hyperkalemia. 3. Hypertension. 4. Anemia. 5. Morbid obesity. 6. Hydration as tolerated. We will follow.
[2017-11-06 15:09] LABS: Anion Gap 14 mmol/L (10-20); BUN (Urea Nitrogen) 45 mg/dL (9.8-20.1); Calc. Creatinine Clearance 79 mL/min (70-130); Calcium 9.7 mg/dL (7.8-10.44); Carbon Dioxide 27 mmol/L (22-29); Chloride 108 mmol/L (98-107); Estimated GFR-MDRD 31; Glucose 123 mg/dL (70-105); Sodium 144 mmol/L (136-145)
[2017-11-06] MEDS: Sodium Chloride 0.45% 1,000 ML IV SCH (15:49)
[2017-11-07 04:42] LABS: Anion Gap 7 mmol/L (10-20); BUN (Urea Nitrogen) 39 mg/dL (9.8-20.1); Calc. Creatinine Clearance 103 mL/min (70-130); Calcium 9.6 mg/dL (7.8-10.44); Carbon Dioxide 30 mmol/L (22-29); Chloride 109 mmol/L (98-107); Estimated GFR-MDRD 42; Glucose 114 mg/dL (70-105); Potassium 4.3 mmol/L (3.5-5.1); Sodium 142 mmol/L (136-145)
[2017-11-07] MEDS: Sodium Chloride 0.45% 1,000 ML IV SCH (07:19)
[2017-11-07 08:09] VITALS: BP 143/84; TEMP 97.6
--- NOTE | 2017-11-07 16:48 | PRG ---
DATE OF SERVICE: 11/07/2017 SUBJECTIVE: Patient was seen and examined at bedside and overnight events noted. Patient denies any shortness of breath or chest pain or palpitation. No history of nausea or vomitin g or diarrhea or fever or chills or cramps. OBJECTIVE: GENERAL: This is morbidly female, in no apparent distress. VITAL SIGNS: Temperature 97.6, pulse 71, respiratory rate 16, blood pressure 143/84. HEENT: Atraumatic, normocephalic. Oral mucosa is moist NECK: Supple. CARDIOVASCULAR: S1 and S2 heard. Rate and rhythm regular. RESPIRATORY: Clear to auscultation. GASTROINTESTINAL: Abdomen is soft. MUSCULOSKELETAL: No tenderness. No edema. DERMATOLOGIC: No skin rash. NEUROLOGIC: Alert and awake and oriented x3. No focal neurologic deficits. Moving all the extremit ies. PSYCHIATRIC: Mood and affect normal. LABORATORY DATA: Potassium is 4.3, BUN 39, creatinine 1.3. ASSESSMENT AND PLAN: 1. Acute kidney injury on chronic kidney disease stage 3. Renal function much better, close to base line. 2. Hyperkalemia, better. 3. Anemia. 4. Morbid obesity. 5. Hypertension, stable. Overall, renal function is back to normal. Okay with discharge. Followup with the clinic in 2 weeks .
--- NOTE | 2017-11-08 00:05 | DIS ---
DATE OF ADMISSION: 11/04/2017 DATE OF DISCHARGE: 11/07/2017 DISCHARGE DIAGNOSES: Acute on chronic renal failure, hydronephrosis, type 2 diabetes mellitus, hyper tension, anemia, morbid obesity with BMI of 50-59.9 in an adult. HISTORY OF PRESENT ILLNESS/HOSPITAL COURSE: Ms. Stu Mckay is a 52-year-old female who was seen at [facility] on 11/04/2017 and reported left-sided flank pain of 4 days' duration. Pain was said to be sharp, 10/10, constant, with no known aggravating or relieving factors. At the emergency room, she was diagnosed with left-sided nephrolithiasis and discharged home. However, the day before she returned and she had a temperature of 100.4 degrees Fahrenheit. She was seen by primary care ph ysician and urinalysis suggestive of infection. She was then started on antibiotic and sent to the e mergency room. She had nausea, but denied chest pain or shortness of breath or vomiting. Her physic al examination was largely unremarkable. Her labs and imaging are as follows: Renal ultrasound show ed left-sided nephrolithiasis, but no hydronephrosis. Her white cells were within normal limits. Sh e had a normocytic anemia with hemoglobin of 11.4. Her BUN/creatinine was elevated at 39 and 2.48 re spectively. Last known creatinine was 1.55 on 10/31/2017. Transaminases were also slightly elevated . Assessment of acute on chronic renal failure was made. She was started on IV fluids as she appear ed dehydrated. Urology Service was also consulted and the patient was ordered a noncontrast CT of th e abdomen and pelvis to rule out nephrolithiasis. Nephrology was also consulted. Her CT scan reveal ed stable bilateral nephrolithiasis with slight migration of the left ureteral calculus down to appro ximately L3 vertebral level with persistent mild left hydronephrosis. Her renal indices continued to improve with hydration. She had a left ureteric stent placement and is to follow up with Urology on outpatient basis. On day of discharge, creatinine was improved to 1.32. He was then deemed prudent to discharge the patient with close followup by primary care physician. DISCHARGE MEDICATIONS: Ciprofloxacin 250 mg b.i.d., oxybutynin 5 mg every 8 hours as needed, phenazo pyridine hydrochloride 200 mg every 8 hours as needed for burning, Flomax 0.4 mg daily as needed, bi soprolol/hydrochlorothiazide 1 tablet every evening, aspirin 81 mg daily, mirabegron 25 mg every othe r day, magnesium oxide 500 mg daily, melatonin 10 mg at bedtime, cholecalciferol 4000 units daily, me tformin 500 mg twice a day with meals. IMAGING: CT abdomen/pelvis as stated in the HPI. Renal ultrasound: Left nephrolithiasis, stable, m ild left-sided hydronephrosis demonstrated. Retrograde pyelogram, left ureteral calculus stent placement in satisfactory location. CONSULTS: Urology and Nephrology. CONDITION ON DISCHARGE: Good. DIET: Renal, heart healthy. CARE GOALS: To follow up with her primary care physician within 1 week of discharge for repeat labs. Metformin was restarted for diabetes. She is to follow up with primary care physician within a wee k. Renal indices are worsening, then she will need to be switched to a different medication for diab etic control. ACTIVITIES: Resume as tolerated. PROCEDURES: Stents placement. DISCHARGE TIME: Total of 65 minutes including chart review and documentation.
== END 2017-11-07 10:35 | disposition home or self-care (01) | DRG 694 ==
LOC: ERS 15:50 → T4-A 20:30
PROVIDERS: ADMIT Internal Medicine; ATTEND Internal Medicine
PROC: 0T778DZ Dilation of Left Ureter with Intraluminal Device, Via Natural or Artificial Opening Endoscopic (ICD-10-PCS; principal; 2017-11-04)
PROC: BT1FZZZ Fluoroscopy of Left Kidney, Ureter and Bladder (ICD-10-PCS; 2017-11-04)
DX: N13.2 Hydronephrosis with renal and ureteral calculous obstruction (principal); E11.22 Type 2 diabetes mellitus with diabetic chronic kidney disease; N17.9 Acute kidney failure, unspecified; N18.3 Chronic kidney disease, stage 3 (moderate); E87.5 Hyperkalemia; Z68.43 Body mass index [BMI] 50.0-59.9, adult; E66.09 Other obesity due to excess calories; Z85.41 Personal history of malignant neoplasm of cervix uteri; Z92.21 Personal history of antineoplastic chemotherapy; Z92.3 Personal history of irradiation; I12.9 Hypertensive chronic kidney disease with stage 1 through stage 4 chronic kidney disease, or unspecified chronic kidney disease; Z88.6 Allergy status to analgesic agent; Z88.0 Allergy status to penicillin; Z79.899 Other long term (current) drug therapy; Z79.891 Long term (current) use of opiate analgesic; Z79.84 Long term (current) use of oral hypoglycemic drugs; R74.0 Nonspecific elevation of levels of transaminase and lactic acid dehydrogenase [LDH]; D64.9 Anemia, unspecified; E88.09 Other disorders of plasma-protein metabolism, not elsewhere classified
CPT/HCPCS: 36415; 36416; 71045; 74018; 74176; 74420; 76770; 80048; 80053; 80076; 81003; 81015; 85025; 87040; 87086; 93005; 96360; C1758; J1100; J1170; J1642; J2001; J2405; J2704; J3010; Q9961

== ENCOUNTER 2017-11-19 12:50 | Outpatient (CLI) | payer OTHER ==
--- NOTE | 2017-11-19 15:35 | CT ---
ABDOMEN CT WITHOUT CONTRAST PELVIC CT WITHOUT CONTRAST: Date: 11/19/17 HISTORY: Left renal calculi. Left-sided hydronephrosis. Left ureteral stent placement. COMPARISON: 10/31/17, 11/04/17. TECHNIQUE: Abdomen and pelvic CT performed with IV and oral contrast. Coronal reformatted images submitted for i nterpretation. FINDINGS: ABDOMEN CT: Lung bases are clear. Heart is enlarged. No significant pericardial fluid. The descending thoracic ao rta and abdominal aorta have a normal caliber. No periaortic fat stranding. Stable enlarged periportal lymph nodes. Largest rental representative lymph node measures 2.7 x 1.6 cm. Gall bladder is surgically absent. Limited evaluation of the solid organs by lack of IV contrast. No solid organ abnormality. No signifi cant change. No mesenteric mass, lymphadenopathy, free air, or free fluid. Stable nonspecific retroperitoneal lymph nodes. Limited evaluation of the alimentary canal due to lack of oral contrast. Gastric mucosa, duodenum, an d multiple normal caliber small bowel loops are noted. Normal ileocecal junction. Normal caliber appe ndix. Scattered fecal material in nondistended, nondilated colon. Fatty infiltration of the right col on is nonspecific. There are two separate nonobstructing calculi in the lower pole of the left kidney measuring 0.4 and 0.3 cm, respectively. There is a left-sided ureteral stent with a proximal pigtail in the upper pole of the left renal pelvis and the distal pigtail in the bladder. There is no evidence of left-sided hy dronephrosis. Left ureteral fat stranding likely due to the presence of a stent. The previously noted calculus in the left ureter at approximately the L3 level is no longer evident. No evidence of right-sided obstructive uropathy. PELVIC CT: No calcifications in urinary bladder. No pelvic mass, lymphadenopathy, free air, or significant free fluid. No lytic or blastic lesions in the osseous structures. IMPRESSION: 1. Interval passage of a calculus previously noted in the left ureter. 2. Redemonstration of nonobstructing calcifications in the lower pole of the left kidney. POS: [facility]
== END 2017-11-19 12:51 | disposition home or self-care (01) ==
LOC: SCSCT 12:50
PROVIDERS: ATTEND Urology
DX: N20.2 Calculus of kidney with calculus of ureter (principal)
CPT/HCPCS: 74176

== ENCOUNTER 2017-11-23 11:46 | Outpatient (CLI) | payer OTHER ==
[2017-11-23 12:19] LABS: Hemoglobin 11.6 g/dL (12.0-16.0); Mean Corpuscular HGB CONC 32.5 g/dL (32.0-36.0); Mean Corpuscular Hemoglobin 27.6 pg (27.0-31.0); Mean Platelet Volume 7.3 fL (7.4-10.4); Platelet Count 286 thou/uL (130-400); RBC Distribution Width 14.5 % (11.5-14.5); Red Blood Cell (RBC) Count 4.19 mill/uL (4.20-5.40); White Blood Cell (WBC) Count 7.9 thou/uL (4.8-10.8)
[2017-11-23 12:47] LABS: Anion Gap 15 mmol/L (10-20); BUN (Urea Nitrogen) 24 mg/dL (9.8-20.1); Calc. Creatinine Clearance 0 mL/min (70-130); Calcium 10.2 mg/dL (7.8-10.44); Carbon Dioxide 28 mmol/L (22-29); Chloride 102 mmol/L (98-107); Estimated GFR-MDRD 42; Glucose 109 mg/dL (70-105); Potassium 4.1 mmol/L (3.5-5.1); Sodium 141 mmol/L (136-145)
== END 2017-11-23 11:47 | disposition home or self-care (01) ==
LOC: LABBT 11:46
PROVIDERS: ATTEND Urology
DX: Z01.812 Encounter for preprocedural laboratory examination (principal); N20.0 Calculus of kidney
CPT/HCPCS: 80048; 81001; 85027; 87086

== ENCOUNTER 2017-12-01 07:38 | Day surgery (SDC) | payer OTHER ==
[2017-11-23 09:55] VITALS: BMI 56.0
[2017-12-01] MEDS ORDERED: CEFAZOLIN/Water 2 GM/20 ML SYRINGE ONE (08:51)
[2017-12-01 09:28] LABS: #Eosinphils 0.6 thou/uL (0.0-0.7); #Lymphocytes 1.8 thou/uL (1.20-3.40); #Monocytes 0.7 thou/uL (0.11-0.59); #Neutrophils 3.5 thou/uL (1.40-6.50); %Basophils 0.2 % (0.0-1.0); %Eosinophils 9.7 % (0.0-10.0); %Monocytes 10.2 % (0.0-10.0); %Neutrophils 52.9 % (42.0-75.0); Hemoglobin 11.2 g/dL (12.0-16.0); Mean Corpuscular HGB CONC 32.2 g/dL (32.0-36.0); Mean Corpuscular Hemoglobin 27.3 pg (27.0-31.0); Mean Corpuscular Volume 84.6 fl (81.0-99.0); Mean Platelet Volume 6.8 fL (7.4-10.4); Platelet Count 275 thou/uL (130-400); RBC Distribution Width 14.9 % (11.5-14.5); Red Blood Cell (RBC) Count 4.11 mill/uL (4.20-5.40); White Blood Cell (WBC) Count 6.6 thou/uL (4.8-10.8)
[2017-12-01 09:52] LABS: Anion Gap 11 mmol/L (10-20); BUN (Urea Nitrogen) 25 mg/dL (9.8-20.1); Calc. Creatinine Clearance 102 mL/min (70-130); Calcium 9.7 mg/dL (7.8-10.44); Carbon Dioxide 29 mmol/L (22-29); Chloride 105 mmol/L (98-107); Estimated GFR-MDRD 43; Glucose 125 mg/dL (70-105); Potassium 3.9 mmol/L (3.5-5.1); Sodium 141 mmol/L (136-145)
--- NOTE | 2017-12-01 10:36 | RAD ---
ABDOMEN ONE VIEW: History: Ureteral stent. Stones. Comparison: 11-05-17 FINDINGS: Large amount of stool within the colon partially obscures the renal outlines. Double pigtail stent pr ojects over the course of the left ureter. Small calculus overlie the inferior pole left kidney. Dege nerative changes of the hips and lumbar spine. IMPRESSION: 1. Left ureteral stent is in good radiographic position. 2. Inferior pole calculus left kidney. POS: [facility]
[2017-12-01] MEDS ORDERED: Fentanyl 100 MCG/2 ML VIAL ONE (11:34)
[2017-12-01] MEDS ORDERED: Morphine 4 MG/ML VIAL ONE (14:02)
[2017-12-01] MEDS ORDERED: Sodium Chloride 0.9% 10 ML ONE (14:20)
[2017-12-01] MEDS ORDERED: ePHEDrine/0.9% NaCl/PF SYRINGE 50 mg/10 ml ONE (14:36)
[2017-12-01] MEDS ORDERED: Lidocaine 1% PF 5 ML VIAL ONE (14:36)
[2017-12-01] MEDS ORDERED: Glycopyrrolate 0.2 MG/ML 5 ML SYRINGE ONE (14:36)
[2017-12-01] MEDS ORDERED: PROPOFOL 200 MG/20 ML VIAL ONE (14:36)
--- NOTE | 2017-12-01 15:17 | OP ---
DATE OF PROCEDURE: 12/01/2017 PREOPERATIVE DIAGNOSIS: Left renal stones. POSTOPERATIVE DIAGNOSIS: Left renal stones. PROCEDURE: Extracorporeal shock wave lithotripsy as well as cystoscopy, removal of left ureteral marlys nt. SURGEON: Kavya Huddleston MD ANESTHESIA: General with ET tube. COMPLICATIONS: None. SPECIMEN: None. ESTIMATED BLOOD LOSS: None. FINDINGS: Good fragmentation of left lower pole stone. INDICATION: The patient is a 52-year-old morbidly obese female, who was admitted acutely with obstru cting stone and underwent an urgent stent. Followup KUB did not determine whether this was at the UP J or whether it was back in the kidney, so a CAT scan was obtained in order to determine this. There was no stone along the ureteral line, and I suspect that the previously obstructing stone was actual ly in the lower pole now next to another smaller stone. So, she was set up for definitive extracorpo ral shockwave lithotripsy with anticipation of the stent removal. PROCEDURE IN DETAIL: The patient was brought into the room by Anesthesia and laid on table in supine position. After general anesthetic, she was positioned such that at this point a lithotripter could identify the stone in multiple planes and it was visible on the x-ray that was taken on the day of s urgery as opposed to the priors. So, a total of 2000 shocks at a maximum power level of 6/6 and a ma ximum rate of 90 per minute were delivered with good fragmentation actually noted during the procedur e despite the patient's difficult body habitus. During the same time, she was frog legged and preppe d and draped in sterile fashion, and then a cystoscope was used to enter the bladder, to find the marlys nt, grasp it, and remove it in its entirety. The patient tolerated the procedure well and was then a wakened and transferred to the PACU in stable condition.
== END 2017-12-01 14:30 | disposition home or self-care (01) ==
LOC: SDC 07:38
PROVIDERS: ATTEND Urology
PROC: 0TF4XZZ Fragmentation in Left Kidney Pelvis, External Approach (ICD-10-PCS; principal; 2017-12-01)
DX: N20.0 Calculus of kidney (principal); K21.9 Gastro-esophageal reflux disease without esophagitis; E55.9 Vitamin D deficiency, unspecified; I12.9 Hypertensive chronic kidney disease with stage 1 through stage 4 chronic kidney disease, or unspecified chronic kidney disease; N18.4 Chronic kidney disease, stage 4 (severe); E66.9 Obesity, unspecified; Z68.43 Body mass index [BMI] 50.0-59.9, adult; Z87.891 Personal history of nicotine dependence; Z79.84 Long term (current) use of oral hypoglycemic drugs; Z79.2 Long term (current) use of antibiotics; Z79.51 Long term (current) use of inhaled steroids; Z79.899 Other long term (current) drug therapy; Z88.8 Allergy status to other drugs, medicaments and biological substances
CPT/HCPCS: 74018; 80048; 85025; J1642; J2001; J2270; J2704; J3010

== ENCOUNTER 2017-12-28 10:54 | Outpatient (CLI) | payer OTHER ==
--- NOTE | 2017-12-28 12:48 | RAD ---
AP ABDOMINAL RADIOGRAPH: Date: 12-28-17 History: Calculus of kidneys. Patient has left ureteral stent removed one month ago. This is a follow up evaluation. FINDINGS: The left renal shadow is obscured due to overlying retained fecal material in the colon. No suspiciou s calcifications are seen overlying the expected location of the renal collecting systems or along th e expected course of either ureter. Left ureteral stent has been removed. Surgical clips overlie the upper quadrants bilaterally. Bowel gas pattern is nonspecific. Degenerative changes are seen in the s pine. IMPRESSION: 1. No suspicious calcifications are seen on this examination. Previously seen calculus overlying the inferior pole left renal shadow is not visualized on this exam. 2. Left ureteral stent has been removed. POS: [facility]
--- NOTE | 2017-12-28 12:55 | ULT ---
RENAL SONOGRAM: Date: 12-28-17 History: Hydronephrosis. Left renal calculus. Ureteral stent removed one month ago. Comparison: 11-04-17 FINDINGS: The kidneys demonstrate a normal sonographic appearance bilaterally without evidence of a renal mass, renal calculus, or hydronephrosis. Previously noted echogenic focus seen in the inferior pole left k idney on prior exam is not seen on this study. The right kidney measures 10.6 cm x 4.7 cm with the left kidney measuring 12.1 cm x 6 cm. The urinary bladder is incompletely distended but otherwise grossly normal in appearance. IMPRESSION: 1. Normal appearing bilateral kidneys without evidence of hydronephrosis. Previously seen echogenic f ocus in the inferior pole of the left kidney on prior ultrasound is not appreciated on today's study. POS: [facility]
== END 2017-12-28 10:55 | disposition home or self-care (01) ==
LOC: SCSULT 10:54
PROVIDERS: ATTEND Urology
DX: N13.2 Hydronephrosis with renal and ureteral calculous obstruction (principal)
CPT/HCPCS: 74018; 76770

== ENCOUNTER 2018-07-05 18:25 | Emergency (ER) | payer OTHER ==
--- NOTE | 2018-07-05 20:52 | RAD ---
RIGHT FOOT RADIOGRAPHS THREE VIEWS: 07/05/2018 PROVIDED CLINICAL HISTORY: Right foot pain. FINDINGS: Plantar and posterior calcaneal enthesophyte formation is noted. There is ossific density, which is well corticated, adjacent to the base of the fifth metatarsal, which is likely an enthesophyte. Alig nment appears anatomic. Joint spaces appear preserved. IMPRESSION: No evidence for an acute osseous abnormality. If there is persistent clinical concern, conservative management and follow-up imaging are advised. POS: [facility]
== END 2018-07-05 20:42 | disposition home or self-care (01) ==
LOC: ERS 18:25
DX: M72.2 Plantar fascial fibromatosis (principal); I10 Essential (primary) hypertension; R73.03 Prediabetes; Z79.84 Long term (current) use of oral hypoglycemic drugs; Z79.899 Other long term (current) drug therapy

== ENCOUNTER 2019-04-08 10:26 | Emergency (ER) | payer OTHER ==
[2019-04-08 11:09] LABS: Bacteria/HPF None Seen HPF (None Seen); Bilirubin Negative (Negative); Blood, Urine 2+ (Negative); Clarity Turbid (Clear); Glucose, Urine (Dipstick) Normal (Negative); Leukocyte Negative Leu/uL (Negative); Nitrite Negative (Negative); Protein, Urine (Dipstick) 200 mg/dL (Neg-Trace); RBC/HPF Greater than 50 HPF (0-3); Urobilinogen Normal mg/dL (Less than 2); WBC/HPF 0-3 HPF (0-3)
[2019-04-08] MEDS ORDERED: Ondansetron PF 4 MG/2 ML Vial ONE (11:38)
[2019-04-08] MEDS ORDERED: Morphine 4 MG/ML VIAL ONE (11:38)
--- NOTE | 2019-04-08 11:55 | CT ---
EXAM: Abdomen and pelvic CT scan without contrast: HISTORY: Pain COMPARISON: 11/19/2017 FINDINGS: The visualized lung bases are clear. Liver: Hepatic steatosis Gallbladder: Surgically absent Pancreas: Unremarkable Spleen: Unremarkable. Adrenal glands: Unremarkable. Kidneys: Removal of prior left ureteral stent. Lower pole left renal calculus remains. There is a 5 m m proximal left ureteral calculus, with mild left obstructive uropathy, and mild left periureteral fat stranding. Punctate, nonobstructive right nephrolithiasis is present. Bowel: No evidence for bowel obstruction. Urinary Bladder: Decompressed urinary bladder, unopacified, with perivesicular fat stranding. Adenopathy: No adenopathy within the abdomen or pelvis. Free Air: No free air. Ascites: No ascites. Osseous structures: No acute osseous abnormalities. IMPRESSION: Mildly obstructing proximal left ureteral calculus, 5 mm in size. Perivesicular fat stranding. The urinary bladder is incompletely assessed due to decompressed state. Recommend clinical correlation to exclude evidence of cystitis. Bilateral nephrolithiasis.
[2019-04-08 12:28] LABS: #Eosinphils 0.7 thou/uL (0.0-0.7); #Lymphocytes 2.3 thou/uL (1.20-3.40); #Monocytes 0.5 thou/uL (0.11-0.59); #Neutrophils 4.9 thou/uL (1.40-6.50); %Basophils 0.1 % (0.0-1.0); %Eosinophils 7.8 % (0.0-10.0); %Lymphocytes 27.2 % (21.0-51.0); %Monocytes 6.4 % (0.0-10.0); %Neutrophils 58.5 % (42.0-75.0); Hemoglobin 11.4 g/dL (12.0-16.0); Mean Corpuscular HGB CONC 32.8 g/dL (32.0-36.0); Mean Corpuscular Hemoglobin 28.5 pg (27.0-31.0); Mean Corpuscular Volume 86.9 fL (78.0-98.0); Mean Platelet Volume 7.2 fL (7.4-10.4); Platelet Count 243 thou/uL (130-400); RBC Distribution Width 13.8 % (11.5-14.5); Red Blood Cell (RBC) Count 3.99 mill/uL (4.20-5.40); White Blood Cell (WBC) Count 8.4 thou/uL (4.8-10.8)
[2019-04-08 12:47] LABS: ALT (SGPT) 17 U/L (8-55); AST (SGOT) 17 U/L (5-34); Albumin 3.6 g/dL (3.5-5.0); Alkaline Phosphatase 75 U/L (40-150); Anion Gap 15 mmol/L (10-20); BUN (Urea Nitrogen) 25 mg/dL (9.8-20.1); Bilirubin, Total 0.2 mg/dL (0.2-1.2); Calc. Creatinine Clearance 0 mL/min (70-130); Calcium 8.9 mg/dL (7.8-10.44); Carbon Dioxide 25 mmol/L (22-29); Chloride 106 mmol/L (98-107); Estimated GFR-MDRD 38; Globulin 3.2 g/dL (2.4-3.5); Glucose 92 mg/dL (70-105); Potassium 4.8 mmol/L (3.5-5.1); Protein, Total 6.8 g/dL (6.0-8.3); Sodium 141 mmol/L (136-145)
== END 2019-04-08 15:35 | disposition home or self-care (01) ==
LOC: ERS 10:26
DX: N20.1 Calculus of ureter (principal); R73.03 Prediabetes; I10 Essential (primary) hypertension; Z79.899 Other long term (current) drug therapy; Z87.442 Personal history of urinary calculi; Z79.84 Long term (current) use of oral hypoglycemic drugs
CPT/HCPCS: 74176; 80053; 81003; 81015; 85025; 94760; 96361; 96374; 96375; J2270; J2405

== ENCOUNTER 2019-08-02 11:02 | Observation (INO) | payer OTHER ==
--- NOTE | 2019-08-02 12:30 | RAD ---
Portable upright frontal chest radiograph: 08/02/2019 COMPARISON: 11/04/2017 HISTORY: Chest pain and dyspnea FINDINGS: Stable CT injectable right-sided Port-A-Cath. Heart and mediastinal contours are stable. No focal consolidation or alveolar edema. IMPRESSION: Stable appearance of the chest-no acute findings.
[2019-08-02 13:58] LABS: #Basophils 0.1 thou/uL (0.0-0.2); #Eosinphils 0.3 thou/uL (0.0-0.7); #Lymphocytes 2.6 thou/uL (1.20-3.40); #Monocytes 0.5 thou/uL (0.11-0.59); #Neutrophils 4.1 thou/uL (1.40-6.50); %Basophils 1.1 % (0.0-1.0); %Eosinophils 3.4 % (0.0-10.0); %Lymphocytes 34.3 % (21.0-51.0); %Monocytes 6.8 % (0.0-10.0); %Neutrophils 54.5 % (42.0-75.0); Hemoglobin 11.9 g/dL (12.0-16.0); Mean Corpuscular HGB CONC 33.5 g/dL (32.0-36.0); Mean Corpuscular Hemoglobin 28.6 pg (27.0-31.0); Mean Corpuscular Volume 85.4 fL (78.0-98.0); Platelet Count 273 thou/uL (130-400); RBC Distribution Width 14.1 % (11.5-14.5); Red Blood Cell (RBC) Count 4.17 mill/uL (4.20-5.40); White Blood Cell (WBC) Count 7.6 thou/uL (4.8-10.8)
[2019-08-02] MEDS ORDERED: Nitroglycerin 2% Ointment 1 INCH/1 GM Packet ONE (14:02)
[2019-08-02] MEDS ORDERED: Aspirin Chewable 81 MG TAB ONE (14:02)
[2019-08-02] MEDS ORDERED: Aspirin 325 MG TAB ONE (14:11)
[2019-08-02 14:21] LABS: ALT (SGPT) 29 U/L (8-55); AST (SGOT) 23 U/L (5-34); Alkaline Phosphatase 95 U/L (40-110); Anion Gap 15 mmol/L (10-20); BUN (Urea Nitrogen) 18 mg/dL (9.8-20.1); Bilirubin, Total 0.3 mg/dL (0.2-1.2); CK (CPK) 37 U/L (29-168); Calc. Creatinine Clearance 0 mL/min (70-130); Calcium 9.6 mg/dL (7.8-10.44); Carbon Dioxide 27 mmol/L (22-29); Chloride 106 mmol/L (98-107); Estimated GFR-MDRD 42; Globulin 3.7 g/dL (2.4-3.5); Glucose 101 mg/dL (70-105); Lipase 14 U/L (8-78); Potassium 4.5 mmol/L (3.5-5.1); Protein, Total 7.7 g/dL (6.0-8.3); Sodium 143 mmol/L (136-145)
[2019-08-02 18:00] LABS: Troponin I Less than 0.010 ng/mL (< 0.028)
[2019-08-02] MEDS ORDERED: hydrALAZINE 20 MG/ML VIAL SLOW IVP PRN (19:22)
[2019-08-02] MEDS ORDERED: Labetalol HCl 100 MG/20 ML VIAL SLOW IVP PRN (19:22)
[2019-08-02] MEDS ORDERED: Acetaminophen 500 MG TAB PO PRN (19:22)
[2019-08-02] MEDS ORDERED: Ondansetron PF 4 MG/2 ML Vial IVP PRN (19:22)
[2019-08-02] MEDS ORDERED: Calcium Carbonate 500 MG ChewTAB PO PRN (19:22)
[2019-08-02] MEDS ORDERED: Ondansetron ODT 4 MG TAB PO PRN (19:22)
[2019-08-02] MEDS ORDERED: Nitroglycerin 0.4 MG TAB (25 Tab Bottle) PO PRN (19:22)
[2019-08-02] MEDS ORDERED: Dextrose 5% in Water 1,000 ML IV PRN (19:35)
[2019-08-02] MEDS ORDERED: HumaLOG 300 UNITS/3 ML VIAL SC PRN ×2 (19:35)
[2019-08-02] MEDS ORDERED: Dextrose 50% Abboject 50 ML SYRINGE SLOW IVP PRN (19:35)
[2019-08-02 20:27] VITALS: BMI 56.1
--- NOTE | 2019-08-02 21:05 | HP ---
PRIMARY CARE PROVIDER: Dr. Claudio Hernandez. CHIEF COMPLAINT: Chest pain. HISTORY OF PRESENT ILLNESS: This is a 54-year-old female, who presents to [facility] Emergency Department complaining of 1-2 day history of central chest pain and pressure with radiation into the jaw. The patient states she initially noted the pain within the last 24 hours with some relief drinking water and resting. The patient states the pain eventually subsided; however, on the morning of admission, the patient noted increasing severe central chest pressure and tightness with radiation into bilateral jaw area. The patient admits to history of reflux symptoms, however, felt like this was more severe than her baseline reflux. The patient denied any visual disturbance, unilateral weakness, or prior history of myocardial infarction. The patient does admit to history of mild myocardial infarctions in two sisters and hypertension. No specific history of recent fever, chills, cough, or congestion. The patient does note multiple bouts of watery diarrhea on the day preceding admission. The patient states she has currently had no bowel movement on the date of evaluation. In the emergency room, the patient underwent general evaluation including chest imaging showing no acute process. Metabolic screening was unremarkable with troponin I negative x2. The patient received aspirin 324 mg in addition to intravenous normal saline x1 L and transdermal nitroglycerin. The patient was referred to the Hospitalist Service for evaluation. PAST MEDICAL HISTORY: 1. Hypertension. 2. Cervical cancer status post hysterectomy with bilateral oophorectomy. 3. Status post radiation chemotherapy. 4. History of cisplatin induced nephrotoxicity. 5. Diabetes mellitus type 2, on oral hypoglycemics. 6. Chronic kidney disease stage 3. PAST SURGICAL HISTORY: 1. Status post hysterectomy. 2. Status post MediPort placement to the right upper chest x4 years. 3. Status post cholecystectomy. 4. Status post total abdominal hysterectomy with bilateral oophorectomy. 5. Status post LEEP procedure. CURRENT MEDICATIONS: Based on review of electronic medical record: 1. Enteric-coated aspirin 81 mg p.o. daily. 2. Bisoprolol/HCTZ 5/6.25 mg 1 tablet p.o. daily. 3. Vitamin D3 4000 units p.o. daily. 4. Magnesium oxide 500 mg p.o. daily. 5. Melatonin 10 mg p.o. at bedtime. 6. Metformin 500 mg p.o. b.i.d. 7. Myrbetriq 25 mg p.o. q.48 hours. 8. Oxybutynin 5 mg p.o. q.8 hours p.r.n. 9. Flomax 0.4 mg p.o. daily. ALLERGIES: ASPIRIN AND PREDNISONE. FAMILY HISTORY: Positive for mild coronary artery disease in both sisters. SOCIAL HISTORY: and resides in the [facility] area. No alcohol, tobacco, or illicit drug use. REVIEW OF SYSTEMS: CONSTITUTIONAL: Negative for weight loss or gain, ability to conduct usual activities. SKIN: Negative for rash, itching. EYES: Negative for double vision, pain. ENT/MOUTH: Negative for nose bleeding, neck stiffness, pain, tenderness. CARDIOVASCULAR: Negative for palpitations, dyspnea on exertion, orthopnea. RESPIRATORY: Negative for shortness of breath, wheezing, cough, hemoptysis, fever or night sweats. GASTROINTESTINAL: Negative for poor appetite, abdominal pain, heartburn, nausea, vomiting, constipation, or diarrhea. GENITOURINARY: Negative for urgency, frequency, dysuria, nocturia. MUSCULOSKELETAL: Negative for pain, swelling. NEUROLOGIC/PSYCHIATRIC: Negative for anxiety, depression. ALLERGY/IMMUNOLOGIC: Negative for skin rash, bleeding tendency. Otherwise, negative except as stated per HPI. PHYSICAL EXAMINATION: VITAL SIGNS: On admission, blood pressure 194/85, pulse 102, respiratory rate 20, temperature 98.5 degrees Fahrenheit, O2 saturation 97% on room air. GENERAL APPEARANCE: This is a 54-year-old female, alert and oriented x3, pleasant, conversant, in no acute distress. HEENT: Pupils are equal, round, reactive to light and accommodation. Extraocular muscles are intact. No scleral icterus. No conjunctival injection. Nares are patent. OP is clear. Teeth in fair repair. NECK: Supple. No cervical adenopathy. No thyromegaly. No carotid bruits. No JVD appreciated. Cervical spine with full active and passive range of motion. No meningeal signs noted. CHEST: Lungs are clear to auscultation bilaterally. CARDIOVASCULAR: S1 and S2 without noted murmur, rub, or gallop. Heart sounds are distant. ABDOMEN: Obese, soft, nontender, and nondistended. Bowel sounds are positive in all 4 quadrants. There is no hepatosplenomegaly. No abdominal bruits. No rebound or guarding appreciated. EXTREMITIES: Warm and dry with fair turgor. No clubbing, cyanosis, or asymmetric edema appreciated. Pulses palpable distally at the dorsalis pedis, posterior tibial, and popliteal arteries bilaterally. Capillary refill less than 2 seconds. NEUROLOGICAL: Cranial nerves 2 through 12 are grossly intact. No focal or lateralizing signs appreciated. PERTINENT LABORATORY AND X-RAY FINDINGS: Sodium 143, potassium 4.5, chloride 106, CO2 of 27, BUN 18, creatinine 1.32, estimated GFR 42, glucose 101, calcium 9.6. LFTs within normal limits. Troponin I negative x2. Albumin 4.0. Lipase 14. CBC showed a white blood cell count of 7.6, hemoglobin 12, hematocrit 36, platelet count 273 with normal differential. D-dimer 1.38. Portable chest x-ray dated 08/02/2019, showed no acute cardiopulmonary process. EKG dated 08/02/2019, by my interpretation shows sinus mechanism with heart rates in the 90s. Normal R-wave progression noted in the precordial leads. Normal axis. No acute ST-T wave changes appreciated. ASSESSMENT AND PLAN: 1. Chest pain. The patient will be observed on the telemetry unit. Continue Plavix 75 mg p.o. daily due to aspirin allergy. Proceed with Cardiolite stress testing in the a.m. N.p.o. after midnight. Check fasting lipid profile. 2. Hypertension. Resume home antihypertensive regimen after confirmation of current regimen. 3. Diabetes mellitus type 2. Insulin sliding scale for reflexive coverage. Serial Accu-Cheks before meals and at bedtime. ADA diet when tolerating p.o. intake. 4. Gastroesophageal reflux. Suspected given the patient's clinical presentation. Pepcid 20 mg p.o. b.i.d. 5. Chronic kidney disease stage 3. Avoid nephrotoxic agents and limit contrast exposure. Serial creatinine monitoring. 6. Prophylaxis. SCDs while in bed. Pepcid 20 mg p.o. b.i.d. 7. Code status is full. Surrogate medical decision maker is the patient's spouse. Job ID: [id number]
[2019-08-02] MEDS: Famotidine 20 MG TAB PO SCH (21:28)
[2019-08-02] MEDS: Sodium Chloride 0.9% 1,000 ML IV SCH (21:29)
[2019-08-02] MEDS ORDERED: rOPINIRole HCl 0.25 MG TAB PO PRN (22:27)
[2019-08-02 22:29] LABS: Troponin I 0.016 ng/mL (< 0.028)
[2019-08-02] MEDS ORDERED: Lisinopril 5 MG TAB PO SCH (22:45)
[2019-08-03 05:31] LABS: Band 1 % (5-11); Eosinophils 3 % (0-10); Hemoglobin 11.4 g/dL (12.0-16.0); Hypochromia SLIGHT = 6-15 cells (100X) (0-5/hpf); Lymphocytes 30 % (21-51); MDiff Complete? YES; Mean Corpuscular Hemoglobin 28.3 pg (27.0-31.0); Mean Corpuscular Volume 85.8 fL (78.0-98.0); Mean Platelet Volume 7.2 fL (7.4-10.4); Monocytes 6 % (0-10); Neutrophil 60 % (42-75); Platelet Count 232 thou/uL (130-400); Platelet Morphology Comment Appears Adequate; Red Blood Cell (RBC) Count 4.03 mill/uL (4.20-5.40); White Blood Cell (WBC) Count 6.8 thou/uL (4.8-10.8)
[2019-08-03 05:38] LABS: Anion Gap 10 mmol/L (10-20); BUN (Urea Nitrogen) 21 mg/dL (9.8-20.1); Calc. Creatinine Clearance 105 mL/min (70-130); Calcium 8.9 mg/dL (7.8-10.44); Carbon Dioxide 28 mmol/L (22-29); Cardiac Risk 3.7 (Less than 4.5); Chloride 108 mmol/L (98-107); Cholesterol 159 mg/dl (< 200 Desired); Estimated GFR-MDRD 45; Glucose 112 mg/dL (70-105); HDL Cholesterol 43 mg/dL (>60 Neg Risk); LDL Cholesterol, Calculated 79 mg/dL; Potassium 4.3 mmol/L (3.5-5.1); Sodium 142 mmol/L (136-145); Triglycerides 186 mg/dL (Less than 150)
[2019-08-03] MEDS: Clopidogrel Bisulfate 75 MG TAB PO SCH (08:18)
[2019-08-03] MEDS: Famotidine 20 MG TAB PO SCH ×2 (08:19→20:31)
[2019-08-03] MEDS: Sodium Chloride 0.9% 1,000 ML IV SCH (16:36)
--- NOTE | 2019-08-03 19:47 | PDOC.HOSPP ---
- Subjective Encounter Date: 08/03/19 Encounter Time: 16:30 Subjective: f/u for CP with 2-day Cardiolite stress test in progress. No new complaints currently. - Objective Vital Signs & Weight: Vital Signs (12 hours) Temp Pulse Resp BP Pulse Ox 08/03/19 16:04 98.9 F 71 16 119/62 95 08/03/19 10:03 94 L Weight Weight 287 lb 6 oz I&O: 08/02/19 08/03/19 08/04/19 06:59 06:59 06:59 Intake Total 836 1752 Output Total 100 Balance 836 1652 Result Diagrams: 08/03/19 05:05 08/03/19 05:05 Additional Labs: Accuchecks 08/03/19 08/03/19 08/02/19 17:26 05:09 20:47 POC Glucose 121 H 116 H 149 H Laboratory Tests 08/02/19 08/02/19 08/02/19 13:48 13:48 13:48 Hgb 11.9 L Creatinine 1.32 H Troponin I 0.024 Triglycerides Cholesterol LDL Cholesterol, Calc HDL Cholesterol 08/02/19 08/02/19 08/03/19 17:17 21:40 05:05 Hgb Creatinine Troponin I Less than 0.010 0.016 Triglycerides 186 H Cholesterol 159 LDL Cholesterol, Calc 79 HDL Cholesterol 43 EKG Reviewed by me: Yes (Tele - SR) Hospitalist ROS - Medication Medications: Active Medications Generic Name Dose Route Start Last Admin Trade Name Freq PRN Reason Stop Dose Admin Clopidogrel Bisulfate 75 mg 08/03/19 09:00 08/03/19 08:18 Plavix PO 75 mg DAILY KATIE Administration Famotidine 20 mg 08/02/19 21:00 08/03/19 08:19 Pepcid PO 20 mg BID KATIE Administration Sodium Chloride 1,000 mls @ 75 mls/hr 08/02/19 19:22 08/03/19 16:36 Normal Saline 0.9% IV 1,000 mls .[id number] KATIE Administration Ropinirole HCl 0.25 mg 08/02/19 22:27 08/02/19 22:47 Requip PO 0.25 mg Q6H PRN Administration Muscle Pain - Exam General Appearance: NAD, awake alert Eye: PERRL, anicteric sclera ENT: normocephalic atraumatic, no oropharyngeal lesions Neck: supple, symmetric, no JVD, no thyromegaly Heart: RRR, no murmur, no gallops, no rubs, normal peripheral pulses Respiratory: CTAB, no wheezes, no rales, no ronchi, normal chest expansion Gastrointestinal: soft, non-tender, non-distended, normal bowel sounds, no palpable masses Gastrointestinal - other findings: obese Extremities: no cyanosis, no edema Skin: normal turgor, no lesions Neurological: cranial nerve grossly intact, no new deficit Musculoskeletal: normal tone, normal strength Psychiatric: normal affect, A&O x 3 Hosp A/P (1) Chest pain Code(s): R07.9 - CHEST PAIN, UNSPECIFIED Status: Acute Plan: 2-Day Cardiolite stress test in progress, continue Plavix (2) GERD (gastroesophageal reflux disease) Code(s): K21.9 - GASTRO-ESOPHAGEAL REFLUX DISEASE WITHOUT ESOPHAGITIS Status: Chronic Plan: Continue Pepcid (3) DM2 (diabetes mellitus, type 2) Status: Chronic Qualifiers: 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-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 use Diabetes mellitus complication status: with unspecified complications Plan: ISS, ADA (4) HTN (hypertension) Code(s): I10 - ESSENTIAL (PRIMARY) HYPERTENSION Status: Chronic Qualifiers: Hypertension type: essential hypertension Qualified Code(s): I10 - Essential (primary) hypertension Plan: Stable, continue home BP regimen (5) CKD (chronic kidney disease), stage III Code(s): N18.3 - CHRONIC KIDNEY DISEASE, STAGE 3 (MODERATE) Status: Chronic Plan: Avoid nephrotoxic meds and limit contrast - Plan out of bed/ambulate, DVT proph w/SCDs Stable currently Await completion of 2-Day Cardiolite Continue Plavix Telemetry monitoring Likely home in 24h
[2019-08-03] MEDS: Lisinopril 5 MG TAB PO SCH (20:29)
[2019-08-04] MEDS: Sodium Chloride 0.9% 1,000 ML IV SCH ×2 (05:51→22:03)
--- NOTE | 2019-08-04 09:41 | NM ---
EXAM: CARDIAC SPECT HISTORY: Chest pain TECHNIQUE: A myocardial perfusion scan was performed using the single isotope 2 day protocol with nakia hnetium 99m sestamibi. [30 mCi] was injected intravenously for the rest exam followed by 33 mCifor the stress study. Pharmacologic stress with adenosine was monitored and interpreted by JIMBO Houston FINDINGS: There is homogeneous tracer distribution in the myocardial segments on the rest images. The stress images demonstrate decreased tracer localization in the distal anterior wall. Gated SPECT LVEF: 76% Wall motion exam: Normal IMPRESSION: Findings are suspicious for reversible distal anterior wall ischemia.
[2019-08-04] MEDS: Famotidine 20 MG TAB PO SCH ×2 (10:23→20:11)
[2019-08-04] MEDS: Clopidogrel Bisulfate 75 MG TAB PO SCH (10:23)
[2019-08-04] MEDS ORDERED: Communication Order-Pharmacy FS SCH (11:45)
[2019-08-04] MEDS ORDERED: Aspirin 81 mg Enteric Coated Tablet PO SCH ×2 (11:45→12:30)
--- NOTE | 2019-08-04 13:53 | CON ---
DATE OF CONSULTATION: 08/04/2019 REASON FOR CONSULTATION: Acute coronary syndrome. HISTORY OF PRESENT ILLNESS: Ms. Peraza is a 54-year-old woman with longstanding history of diabetes, admitted with retrosternal chest pain. She said the pain has been going on for several months, but it was mild up until this week and she has been having severe substernal pain with low-level activity and even at rest. She underwent stress test, which showed some ischemia in the distal anterior wall. The patient is pain-free currently. PAST MEDICAL HISTORY: 1. She has a history of cervical cancer, treated with surgery, then x-ray therapy, then chemotherapy including cisplatin. 2. History of hypertension. 3. Diabetes for at least 2 years. MEDICATION: 1. Aspirin. 2. Lisinopril. 3. Insulin. INTOLERANCES TO MEDICINES: She is intolerant to non-coated aspirin, but she can take aspirin 81 mg coated. She also lists allergy to prednisone. REVIEW OF SYSTEMS: CONSTITUTIONAL: No significant weight gain or loss. VISION: No changes. HEARING: No changes. PULMONARY: No cough or wheezing. GASTROINTESTINAL: No nausea, vomiting, or diarrhea. SKIN: No rashes. NEUROLOGIC: No unilateral weakness or numbness. PSYCHIATRIC: No unusual depression or anxiety. HEMATOLOGIC: No unusual bruising. GENITOURINARY: No burning with urination. FAMILY HISTORY: Negative for heart disease at a young age. PHYSICAL EXAMINATION: GENERAL: This is a pleasant 54-year-old woman. She is 5 feet tall, 285 pounds, BMI is 55.8. EYES: Sclerae nonicteric. MOUTH: Mucous membranes moist. NECK: Supple. No lymphadenopathy. LUNGS: Clear. CARDIAC: Normal S1. Normal S2. There is no murmur, rub, or gallop. ABDOMEN: Soft and nontender. EXTREMITIES: Warm and dry. No clubbing. No cyanosis. No edema. She has pedal pulses, which are palpable. Femoral pulses palpable, just very deep. DIAGNOSTIC STUDIES: EKG: Sinus rhythm, some nonspecific T-wave changes. PERTINENT LABORATORY DATA: The creatinine is 1.23, estimated GFR is 45, which is stage 3 renal failure. Triglycerides 186 and LDL 79. Troponin levels are negative. ASSESSMENT: 1. Acute coronary syndrome clinically. Stress test shows some anterior ischemia. 2. Morbid obesity. 3. Diabetes. 4. Renal insufficiency/renal failure stage 3. PLAN: Recommend proceeding to cardiac catheterization. Discussed risks including stroke, heart attack, iodine allergy, stent thrombosis, stent restenosis, and bleeding. The patient understands and wished to go from a radial approach if appropriate and feasible. Job ID: [id number]
--- NOTE | 2019-08-04 18:01 | PDOC.HOSPP ---
- Subjective Encounter Date: 08/04/19 Encounter Time: 17:40 Subjective: f/u for CP and abnormal Cardiolite showing ? reversible ischemia in anterior wall distally. No new complaints. - Objective Vital Signs & Weight: Vital Signs (12 hours) Temp Pulse Resp BP Pulse Ox 08/04/19 15:23 98.2 F 79 17 124/58 L 94 L 08/04/19 11:41 98.0 F 90 20 125/67 96 08/04/19 07:41 98.0 F 78 20 137/63 95 08/04/19 07:37 95 Weight Weight 285 lb 12.8 oz I&O: 08/03/19 08/04/19 08/05/19 06:59 06:59 06:59 Intake Total 836 3490 2064 Output Total 100 Balance 836 3390 4 Result Diagrams: 08/03/19 05:05 08/03/19 05:05 Additional Labs: Accuchecks 08/04/19 08/04/19 08/04/19 16:58 10:39 04:42 POC Glucose 106 130 H 118 H 08/03/19 20:36 POC Glucose 200 H Laboratory Tests 08/02/19 08/02/19 08/02/19 13:48 13:48 13:48 Hgb 11.9 L Creatinine 1.32 H Troponin I 0.024 Triglycerides Cholesterol LDL Cholesterol, Calc HDL Cholesterol 08/02/19 08/02/19 08/03/19 17:17 21:40 05:05 Hgb Creatinine Troponin I Less than 0.010 0.016 Triglycerides 186 H Cholesterol 159 LDL Cholesterol, Calc 79 HDL Cholesterol 43 EKG Reviewed by me: Yes (Tele - SR) Hospitalist ROS - Medication Medications: Active Medications Generic Name Dose Route Start Last Admin Trade Name Freq PRN Reason Stop Dose Admin Clopidogrel Bisulfate 75 mg 08/03/19 09:00 08/04/19 10:23 Plavix PO 75 mg DAILY KATIE Administration Famotidine 20 mg 08/02/19 21:00 08/04/19 10:23 Pepcid PO 20 mg BID KATIE Administration Sodium Chloride 1,000 mls @ 75 mls/hr 08/02/19 19:22 08/04/19 05:51 Normal Saline 0.9% IV 1,000 mls .[id number] KATIE Administration Lisinopril 5 mg 08/03/19 21:00 01/15/20 20:29 Zestril PO 5 mg HS KATIE Administration Ropinirole HCl 0.25 mg 08/02/19 22:27 08/02/19 22:47 Requip PO 0.25 mg Q6H PRN Administration Muscle Pain - Exam General Appearance: NAD, awake alert Eye: PERRL, anicteric sclera ENT: normocephalic atraumatic, no oropharyngeal lesions Neck: supple, symmetric, no JVD, no thyromegaly Heart: RRR, no murmur, no gallops, no rubs, normal peripheral pulses Respiratory: CTAB, no wheezes, no rales, no ronchi, normal chest expansion Gastrointestinal: soft, non-tender, non-distended, normal bowel sounds Extremities: no cyanosis, no clubbing, no edema Skin: normal turgor, no lesions Neurological: cranial nerve grossly intact, no new deficit Musculoskeletal: normal tone, normal strength Psychiatric: normal affect, A&O x 3 Hosp A/P (1) Chest pain Code(s): R07.9 - CHEST PAIN, UNSPECIFIED Status: Acute Plan: Cardiolite showing ? 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
[2019-08-04] MEDS: Oxybutynin 5 MG TAB PO SCH (20:11)
[2019-08-04] MEDS: Lisinopril 5 MG TAB PO SCH (20:11)
[2019-08-05] MEDS: Oxybutynin 5 MG TAB PO SCH (05:48)
[2019-08-05] MEDS: Famotidine 20 MG TAB PO SCH (05:49)
[2019-08-05] MEDS: Clopidogrel Bisulfate 75 MG TAB PO SCH (05:49)
[2019-08-05] MEDS ORDERED: Diazepam 5 MG TAB PO SCH (06:00)
[2019-08-05] MEDS ORDERED: Heparin 10,000 UNITS/1 ML VIAL ONE (06:38)
[2019-08-05] MEDS ORDERED: Nitroglycerin 100MG/250ML BOT 250 ML ONE (06:38)
[2019-08-05] MEDS ORDERED: Verapamil 5 MG/2 ML VIAL ONE (06:38)
[2019-08-05] MEDS ORDERED: Heparin (Artline) 1,000 ML ONE (06:38)
[2019-08-05] MEDS ORDERED: Lidocaine 1% (PF) 30 ML VIAL ONE (06:39)
[2019-08-05] MEDS ORDERED: Midazolam HCl 2 mg/2 ml Vial ONE (07:36)
[2019-08-05] MEDS ORDERED: Fentanyl 100 MCG/2 ML VIAL ONE (07:36)
[2019-08-05] MEDS ORDERED: hydrALAZINE 20 MG/ML VIAL ONE ×2 (07:54→12:19)
[2019-08-05] MEDS ORDERED: Heparin (Artline) 500 ML ONE (08:25)
[2019-08-05] MEDS ORDERED: Clopidogrel Bisulfate 300 MG TAB ONE (08:32)
[2019-08-05] MEDS ORDERED: Sodium Chloride 0.9% 500 ML IV SCH (09:00)
[2019-08-05] MEDS ORDERED: Aspirin 81 mg Enteric Coated Tablet PO SCH ×2 (09:00)
[2019-08-05] MEDS ORDERED: Iopamidol 370 76% 100 ML VIAL ONE (09:48)
--- NOTE | 2019-08-05 15:36 | PDOC.HOSPP ---
- Subjective Encounter Date: 08/05/19 Encounter Time: 10:15 Subjective: pt up in bed no complains - Objective Vital Signs & Weight: Vital Signs (12 hours) Temp Pulse Resp BP Pulse Ox 08/05/19 13:00 97.9 F 103 H 18 142/67 H 99 Weight Weight 282 lb 4.8 oz I&O: 08/04/19 08/05/19 08/06/19 06:59 06:59 06:59 Intake Total 3490 3765 425 Output Total 100 400 Balance 3390 3765 25 Result Diagrams: 08/03/19 05:05 08/03/19 05:05 Additional Labs: Accuchecks 08/05/19 08/05/19 08/04/19 13:05 05:55 20:43 POC Glucose 107 112 H 130 H 08/04/19 16:58 POC Glucose 106 Hospitalist ROS - Review of Systems Cardiovascular: denies: chest pain, palpitations, orthopnea, paroxysmal noc. dyspnea, edema, light headedness, other Gastrointestinal: denies: nausea, vomiting, abdominal pain, diarrhea, constipation, melena, hematochezia, other Genitourinary: denies: dysuria, frequency, incontinence, hematuria, retention, other - Medication Medications: Active Medications Generic Name Dose Route Start Last Admin Trade Name Freq PRN Reason Stop Dose Admin Aspirin 81 mg 08/05/19 09:00 08/05/19 05:48 Ecotrin PO 81 mg DAILY KATIE Administration Clopidogrel Bisulfate 75 mg 08/03/19 09:00 08/05/19 05:49 Plavix PO 75 mg DAILY KATIE Administration Famotidine 20 mg 08/02/19 21:00 08/05/19 05:49 Pepcid PO 20 mg BID KATIE Administration Lisinopril 5 mg 08/03/19 21:00 08/04/19 20:11 Zestril PO 5 mg HS KATIE Administration Metoprolol Succinate 12.5 mg 08/05/19 09:00 08/05/19 13:54 Toprol Xl PO 12.5 mg DAILY KATIE Administration Oxybutynin Chloride 5 mg 08/04/19 21:00 08/05/19 05:48 Ditropan PO 5 mg BID KATIE Administration Ropinirole HCl 0.25 mg 08/02/19 22:27 08/02/19 22:47 Requip PO 0.25 mg Q6H PRN Administration Muscle Pain - Exam Neck: negative: supple, symmetric, no JVD, no thyromegaly, no lymphadenopathy, no carotid bruit, JVD Heart: negative: RRR, no murmur, no gallops, no rubs, normal peripheral pulses, irregular, diminshed peripheral pulses, murmur present, II/IV, III/IV Respiratory: negative: CTAB, no wheezes, no rales, no ronchi, normal chest expansion, no tachypnea, normal percussion, rales, rhonchi, tachypneic, wheezes Extremities - other findings: right groin dressing intact Hosp A/P (1) CAD (coronary artery disease) Code(s): I25.10 - ATHSCL HEART DISEASE OF [place] CORONARY ARTERY W/O ANG PCTRS Status: Acute (2) DM2 (diabetes mellitus, type 2) Status: Chronic Qualifiers: Diabetes mellitus 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 Diabetes mellitus complication status: with unspecified complications (3) HTN (hypertension) Code(s): I10 - ESSENTIAL (PRIMARY) HYPERTENSION Status: Chronic Qualifiers: Hypertension type: essential hypertension Qualified Code(s): I10 - Essential (primary) hypertension (4) Morbid obesity with BMI of 50.0-59.9, adult Code(s): E66.01 - MORBID (SEVERE) OBESITY DUE TO EXCESS CALORIES; Z68.43 - BODY MASS INDEX (BMI) 50.0-59.9, ADULT Status: Chronic (5) CKD (chronic kidney disease), stage III Code(s): N18.3 - CHRONIC KIDNEY DISEASE, STAGE 3 (MODERATE) Status: Chronic (6) GERD (gastroesophageal reflux disease) Code(s): K21.9 - GASTRO-ESOPHAGEAL REFLUX DISEASE WITHOUT ESOPHAGITIS Status: Chronic - Plan pt up in bed s/p stent to LAD. will continue asa/plavix for now. possible home in am.
[2019-08-05 15:44] VITALS: BP 143/69; TEMP 99
[2019-08-05] MEDS ORDERED: Atorvastatin Calcium 20 MG TAB PO SCH (21:00)
--- NOTE | 2019-08-06 02:05 | DIS ---
DATE OF ADMISSION: 08/02/2019 DATE OF DISCHARGE: 08/05/2019 DISCHARGE DIAGNOSES: 1. Coronary artery disease. 2. Hypertension. 3. Diabetes. 4. Obesity. HOSPITAL COURSE: The patient is a 54-year-old female who initially presented to the hospital with complaints of chest pain. She underwent a nuclear stress test, which was abnormal, indicated a suspicion for reversible distal anterior wall ischemia. At this time, Cardiology was consulted and patient underwent a cardiac catheterization and had a drug-eluting stent to her mid LAD. The patient at this time was doing well. Per nursing staff, Cardiology is okay to discharge patient home today. HOME MEDICATIONS: 1. Aspirin 81 mg daily. 2. Plavix 75 mg daily. 3. Metoprolol 12.5 daily. 4. Metformin 500 mg b.i.d. 5. I have advised the patient to hold that for 48 hours and then could resume that on Thursday. 6. Atorvastatin 20 mg at bedtime. 7. Vitamin D 4000 units daily. 8. Magnesium oxide 500 mg daily. 9. Omeprazole 1 tab q.6 hours p.r.n. 10. Lisinopril 5 mg daily. 11. Ropinirole 1 tab p.o. q.6 hours p.r.n. PHYSICAL EXAMINATION: VITAL SIGNS: Temperature of 99, 88, 18, 96% on room air, 143/69. GENERAL: She is awake, alert, and oriented x3. Does not appear in distress. CV: S1, S2 present. No murmurs, rubs or gallops. ABDOMEN: Her right groin appears stable. EXTREMITIES: Pedal pulses are present. Also her right wrist appears stable. Again, she will be discharged home today. Per nursing was okay with Cardiology to discharge her home. 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 The new medications are Plavix, metoprolol and atorvastatin and I have advised her to hold her metformin for 48 hours. Job ID: [id number]
--- NOTE | 2019-08-06 14:24 | EKG ---
Test Reason : CHEST PAIN Blood Pressure : / mmHG Vent. Rate : 096 BPM Atrial Rate : 096 BPM P-R Int : 142 ms QRS Dur : 068 ms QT Int : 344 ms P-R-T Axes : 023 012 029 degrees QTc Int : 434 ms Normal sinus rhythm Normal ECG Confirmed by TIGRE BURDICK DO ([id number]), copy editor SMITH PRIEST ([id number]) on 08/06/2019 2:24:08 PM Referred By: Confirmed By:TIGRE BURDICK DO
--- NOTE | 2019-08-09 10:30 | EKG ---
Test Reason : POST STENT Blood Pressure : / mmHG Vent. Rate : 100 BPM Atrial Rate : 100 BPM P-R Int : 148 ms QRS Dur : 072 ms QT Int : 340 ms P-R-T Axes : 037 016 039 degrees QTc Int : 438 ms Normal sinus rhythm Normal ECG When compared with ECG of 02-AUG-2019 11:11, (Unconfirmed) No significant change was found Confirmed by YULIA BOSWELL (2) on 08/09/2019 10:29:53 AM Referred By: JAIMEE Confirmed By:YULIA BOSWELL
== END 2019-08-05 17:44 | disposition home or self-care (01) ==
LOC: ERS 11:02 → ERHOLD 16:22 → 2SW 19:48
PROVIDERS: ADMIT Family Medicine; ATTEND Family Medicine
PROC: 027034Z Dilation of Coronary Artery, One Artery with Drug-eluting Intraluminal Device, Percutaneous Approach (ICD-10-PCS; principal; 2019-08-05)
PROC: 4A023N7 Measurement of Cardiac Sampling and Pressure, Left Heart, Percutaneous Approach (ICD-10-PCS; 2019-08-05)
PROC: B2111ZZ Fluoroscopy of Multiple Coronary Arteries using Low Osmolar Contrast (ICD-10-PCS; 2019-08-05)
DX: I25.10 Atherosclerotic heart disease of native coronary artery without angina pectoris (principal); I12.9 Hypertensive chronic kidney disease with stage 1 through stage 4 chronic kidney disease, or unspecified chronic kidney disease; E11.22 Type 2 diabetes mellitus with diabetic chronic kidney disease; N18.3 Chronic kidney disease, stage 3 (moderate); K21.9 Gastro-esophageal reflux disease without esophagitis; E66.01 Morbid (severe) obesity due to excess calories; Z68.43 Body mass index [BMI] 50.0-59.9, adult; Z85.41 Personal history of malignant neoplasm of cervix uteri; Z79.4 Long term (current) use of insulin; Z79.84 Long term (current) use of oral hypoglycemic drugs; Z79.899 Other long term (current) drug therapy; Z88.8 Allergy status to other drugs, medicaments and biological substances
CPT/HCPCS: 36416; 71045; 78452; 80048; 80053; 80061; 82550; 83690; 84484; 85007; 85025; 85027; 85347; 85379; 92928; 93005; 93010; 93017; 93458; 94760; 96360; 96361; 99152; 99153; A9500; C1769; C1874; C9600; G0378; J0153; J0360; J1644; J2001; J2250; J3010; Q9967

== ENCOUNTER 2020-11-08 10:42 | Outpatient (CLI) | payer OTHER | END 2020-11-08 10:43 | disposition home or self-care (01) | LOC: BICMAMMO 10:42 | PROVIDERS: ATTEND Family Medicine | DX: Z12.31 Encounter for screening mammogram for malignant neoplasm of breast (principal); Z80.3 Family history of malignant neoplasm of breast | CPT/HCPCS: 77063; 77067 ==